=== PATIENT | female | born 1930 | race Caucasian/White ===

== ENCOUNTER 2016-04-15 11:01 | Emergency (ER) | payer MEDICARE, BC ==
--- OUTSIDE RECORDS SUMMARY | 2016-04-15 12:16 | XMS REPORT | Continuity of Care Document ---
:1930 Author Organization [facility] ([facility]) Address [address] [place] [address] Phone [phone] Care Team Providers Name Role Phone Brett Morales Primary Care Provider [phone] Source Comments This disclosure is being made pursuant to the Care Everywhere program, applicable federal and state laws, and may not contain all informaitonavailable regarding this patient.[facility] ([facility]) Active Allergies and Adverse Reactions Allergen Noted Date Severity Reactions Comments Atorvastatin 07/12/2012 OTHER Leg cramps Metoprolol Tartrate 07/12/2012 Dizziness,Rhinorrhea Current Medications Prescription Sig. Disp. Refills Start Date End Date Status multivitamin tablet take 1 tablet daily 12/21/2013 Active VIT C/VIT E Take 1 capsule by Active AC/LUT/COPPER/ZINC mouth daily. (PRESERVISION LUTEIN PO) lansoprazole 15 mg Take 15 mg by mouth Active capsule daily as needed. naproxen 250 mg tablet Take 250 mg by Active mouth daily as needed. artificial tears (TEARS Instill 1-2 Drops Active NATURALE II, GENTEAL onto both eyes as TEARS) ophthalmic needed. solution rOPINIRole 1 mg tablet Take 1 mg by mouth. Active 2-3 times per day with 1 dose being 1-3 hours before bedtime. furosemide 40 mg tablet TAKE ONE TABLET BY 0 04/01/2016 Active MOUTH DAILY FOR 7 DAYS simvastatin 40 mg tablet Take 40 mg by mouth 10 04/01/2016 Active at bedtime. 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 Age related macular degeneration 06/24/2010 Pseudophakia 06/24/2010 Nuclear sclerosis 06/24/2010 Resolved Problems Problem Noted Date Resolved Date Speech disturbance 12/24/2015 12/26/2015 Status post administration of tPA (rtPA) in a different 12/24/2015 12/26/2015 facility within the last 24 hours prior to admission to current facility Right sided weakness 12/24/2015 12/26/2015 Right arm weakness 12/24/2015 12/26/2015 Most Recent Encounters Date Type Specialty Providers Description 04/14/2016 Office Visit Neurology Kim Scott MD Dx: 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, 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) 01/18/2016 Nurse Triage Patient Services Jimbo Curtis, Chief Comp: Advice Only GANESH Quezada Social History Tobacco Use Types Packs/Day Years Used Date Former Smoker 0.75 Quit: 06/23/2012 Smokeless Tobacco: Never Used Alcohol Use Drinks/Week oz/Week Comments No Last Filed Vital Signs Vital Sign Reading Time Taken Blood Pressure 147/57 04/14/2016 10:28 AM 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 FRONT 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 OPERATOR Pulse 73 04/14/2016 10:28 AM COMMERCIAL FRONT LOAD OPERATOR Temperature 36.3 C (97.3 F) 12/26/2015 2:01 PM CDT Respiratory Rate 26 12/24/2015 7:02 PM CDT Height 1.588 m (5' 2.5") 04/14/2016 10:28 AM COMMERCIAL FRONT LOAD OPERATOR Weight 71.3 kg (157 lb 3 oz) 04/14/2016 10:28 AM COMMERCIAL FRONT LOAD OPERATOR Body Mass Index 28.27 04/14/2016 10:28 AM COMMERCIAL FRONT LOAD OPERATOR Oxygen Saturation 97% 04/14/2016 10:28 AM COMMERCIAL FRONT LOAD OPERATOR Plan of Care Date Type Specialty Providers Description 04/24/2016 Appointment Heart and Vascular Neena Al MD Chief Comp: Patient [address] [place] [address] Visit [phone] (Fax) Health Maintenance Due Date Last Done Comments Hepatitis B Vaccine (1 of 3 - Primary Series) 1930 Tdap Vaccine 1940 Td Vaccine 09/29/1947 Zoster Vaccine 1989 Pneumococcal Vaccine (1 of 2 - PCV13) 1994 Influenza Vaccine: Seasonal (#1) 09/24/2015 Lipid Disorder Screening 12/24/2020 12/25/2015 Results from Last 3 Months Not on file
[2016-04-15 12:32] LABS: Hematocrit 31.6 % (37.0-47.0); Mean Cell Volume 95.2 fl (78-100); Mean Corpuscular Hemoglobin 30.1 pg (27-31); Mean Corpuscular Hgb Conc 31.6 g/dl (32-36); Mean Platelet Volume 10.7 fl (6.0-9.5); Neutrophil # 6.6 K/mm3 (1.3-6.0); Neutrophil % 68.5 % (42-75.0); Platelet Count 225 K/mm3 (150-450); Red Blood Count 3.32 M/mm3 (4.2-5.4); Red Cell Distribution Width 13.7 % (11.5-14.0); White Blood Count 9.6 K/mm3 (4.0-10.5)
--- NOTE | 2016-04-15 12:43 | ERNOTE ---
Medical Problem HPI - Narrative Date of Service: 04/15/16 - General Chief Complaint: General Assessment Time Seen by Provider: 04/15/16 11:59 Source: patient, RN notes reviewed, old records Exam Limitations: no limitations - Immun/Allergies/Home Medications Immunizations: IMMUNIZATION HX Immunizations Up to Date Yes History of Influenza Vaccine Yes Hx Pneumococcal Vaccination Yes Allergies/Adverse Reactions: Allergies atorvastatin calcium [From Lipitor] Adverse Reaction (Mild, Verified 04/15/16 11 :13) LEG CRAMPS Home Medications: HOME MEDICATIONS Beta-Carotene(A) W-C , E/Min [Ocuvite] 1 tab PO DAILY 07/26/14 [Last Taken Unknown] Cyanocobalamin [Vitamin B-12] 1,000 mcg PO DAILY 04/14/15 [Last Taken Unknown] Multivitamins [Multivitamin David] 1 cap PO DAILY 04/14/15 [Last Taken Unknown] rOPINIRole HCL [Requip] 1 mg PO HS 09/25/15 [Last Taken Unknown] Aspirin 81 mg PO DAILY 04/15/16 [Last Taken Unknown] Rosuvastatin Calcium [Crestor] 10 mg PO DAILY 04/15/16 [Last Taken Unknown] Simvastatin [Zocor] 40 mg PO HS 04/15/16 [Last Taken Unknown] - History of Present History Narrative: 85 y/o female to the ED from the [place] by private vehicle for an episode of dizziness. 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 She reports that she was sitting in her room at the time. She had her blood pressure checked, and the systolic was over 200. She contacted her PCP's office and was directed to come here. She denies any other symptoms currently. She reports that she had been having some increased shortness of breath and swelling in her legs. She has seen her PCP for this and reports that some tests were done. She got up to use the restroom shortly before I came into the room. She reports briefly having some dizziness at that time. Orthostatic vital signs were done without any significant change with position. Date (Duration): 04/15/16 Time (Timing): 08:45 Timing: resolved prior to arrival Severity: mild Review of Systems - Review of Systems Constitutional: Absent: recent illness, fever, chills, malaise EYE: Absent: eye pain, blurred vision ENT: Absent: ear pain, nose congestion, sore throat Respiratory: Absent: cough, orthopnea Cardiology: Present: edema. Absent: chest pain, palpitations Gastrointestinal/Abdominal: Absent: nausea, vomiting, diarrhea, eating less, drinking less Musculoskeletal: Present: no symptoms reported Skin: Present: no symptoms reported Neurological: Absent: headache, weakness, numbness, tingling Endocrine: Present: no symptoms reported Hematologic/Lymphatic: Present: no symptoms reported Psych: Present: no symptoms reported - Patient's Past Medical History Patient History - Medical: Kidney stone Patient History - Cardiac/Respiratory: CVA/Stroke, Hypertension Patient History - Cancer: Colon Patient History - Surgical Procedures: Cataracts, Colonoscopy, Hysterectomy, Other Patient History - Other: None LMP (females 10-50): Menopausal - Family History Father Family History - Medical: , No pertinent hx Family History - Cardiac/Respiratory: No pertinent hx Mother Family History - Medical: , Diabetes Type 2 Family History - Cardiac/Respiratory: Hypertension - Social History Living Situations: assisted living Abuse History: No History of abuse Psych History: No pertinent hx Smoking Status: Former smoker Alcohol Use: none Drug Use: none - Immunizations Immunizations Up to Date: Yes Hx Pneumococcal Vaccination: Yes History of Influenza Vaccine: Yes Physical Exam - Physical Exam General Appearance: Present: wd/wn, alert, no apparent distress, other - Well dressed and groomed, appears younger than actual age Eye Exam: Normal inspection: bilateral, PERRL: bilateral, EOMI: bilateral Ears, Nose, Throat: Present: hearing decreased, cerumen impaction, normal pharynx, other - cerumen manually removed from both ears, TM's normal. Absent: nasal congestion, sinus pain/drainage Neck: Present: normal inspection, nontender, supple Respiratory: Present: no respiratory distress, normal breath sounds, no accessory muscle use, lungs clear Cardiovascular/Chest: Present: regular rate, rhythm, no murmur, normal peripheral pulses Extremity Exam: Present: non-tender, normal range of motion, pedal edema Neurological Exam: Present: alert, oriented, normal mood/affect, no motor/ sensory deficits Skin Exam: Present: normal color, warm/dry ED Progress - Results and Orders Patient's Lab Results:: I have reviewed the patient's lab results. - Vital Signs Patient's Vital Signs:: I have reviewed the patient's vital signs. Vital Signs: Vital Signs 04/15/16 04/15/16 11:06 12:12 Temperature 37.0 C Pulse Rate 75 72 Respiratory 16 Rate Blood Pressure 159/63 174/65 O2 Sat by Pulse 97 Oximetry - Progress/Reassessment Chief Complaint: General Assessment Progress:: Unchanged Plan - Plan Plan: CBC and CMP are stable since her last labwork. No clear cause determined for dizziness. To see Dr. Al next week as scheduled, or to contact her PCP if symptoms return. Departure - Departure Clinical Impression: Dizziness Disposition: Home Follow Up Needed Condition: Stable Instructions: Dizziness, [id number] Additional Instructions: Continue your current medications See Dr. Al as scheduled Referrals: Brett Morales DO [Primary Care Provider] -
[2016-04-15 12:45] LABS: Albumin * 3.4 gm/dl (3.4-5.0); Anion Gap 15.2 mmol/L (6.8-13.8); BUN/Creatinine Ratio 21.9 (9.0-21.6); Bilirubin, Total 0.4 mg/dL (0.0-1.1); Ca. Corrected For Albumin 8.8 mg/dL (8.4-10.2); Calcium * 8.6 mg/dL (7.9-10.9); Potassium 4.2 mmol/L (3.4-4.6); Total Protein 7.4 gm/dL (6.2-8.2)
[2016-04-15 13:16] VITALS: BP 160/44
== END 2016-04-15 13:10 | disposition home or self-care (01) ==
LOC: ER 11:01
DX: R42 Dizziness and giddiness (principal); Z87.442 Personal history of urinary calculi; Z85.038 Personal history of other malignant neoplasm of large intestine; Z87.891 Personal history of nicotine dependence

== ENCOUNTER 2016-06-17 08:13 | Observation (INO) | payer MEDICARE, BC ==
[2016-06-17 09:02] LABS: Mean Cell Volume 93.1 fl (78-100); Mean Corpuscular Hemoglobin 29.9 pg (27-31); Mean Corpuscular Hgb Conc 32.1 g/dl (32-36); Neutrophil # 9.2 K/mm3 (1.3-6.0); Neutrophil % 81.6 % (42-75.0); Platelet Count 212 K/mm3 (150-450); Red Blood Count 2.31 M/mm3 (4.2-5.4); Red Cell Distribution Width 14.8 % (11.5-14.0); White Blood Count 11.2 K/mm3 (4.0-10.5)
[2016-06-17 09:05] LABS: Hematocrit 21.5 % (37.0-47.0); Hemoglobin 6.9 gm/dL (12.5-16.0)
[2016-06-17 09:09] LABS: Urine Bilirubin Negative (NEGATIVE); Urine Blood Negative /ul (NEGATIVE); Urine Ketone Negative (NEGATIVE); Urine Nitrite Negative (NEGATIVE); Urine Protein 15 mg/dL (NEGATIVE); Urine Specific Gravity 1.025 SP.GR. (1.005-1.010); Urine Urobilinogen Normal (NORMAL); Urine pH 5.5 pH (5.0-7.0)
[2016-06-17 09:13] LABS: Prothrombin Time (Patient) 11.1 Seconds (9.4-11.4)
[2016-06-17 09:14] LABS: INR 1.07 INR (0.90-1.10)
[2016-06-17 09:17] LABS: Albumin * 2.9 gm/dl (3.4-5.0); Anion Gap 13.7 mmol/L (6.8-13.8); BUN/Creatinine Ratio 34.1 (9.0-21.6); Bilirubin, Total 0.4 mg/dL (0.0-1.1); Ca. Corrected For Albumin 9.3 mg/dL (8.4-10.2); Calcium * 8.7 mg/dL (7.9-10.9); Carbon Dioxide 24.7 mmol/L (24-32.6); Potassium 4.4 mmol/L (3.4-4.6); Total Protein 6.3 gm/dL (6.2-8.2)
[2016-06-17 09:18] LABS: Urine Appearance Slightly Cloudy; Urine Bacteria 4+; Urine Color Yellow; Urine WBC 25-50 /hpf (0-5)
--- OUTSIDE RECORDS SUMMARY | 2016-06-17 09:23 | XMS REPORT | Continuity of Care Document ---
:1930 Author Organization [facility] ([facility]) Address [address] [place] [address] Phone [phone] Care Team Providers Name Role Phone Brett Morales Primary Care Provider [phone] Source Comments This disclosure is being made pursuant to the Care Everywhere program, applicable federal and state laws, and may not contain all informaitonavailable regarding this patient.[facility] ([facility]) Active Allergies and Adverse Reactions Allergen Noted Date Severity Reactions Comments Atorvastatin 07/12/2012 OTHER Leg cramps Metoprolol Tartrate 07/12/2012 Dizziness,Rhinorrhea Current Medications Prescription Sig. Disp. Refills Start Date End Date Status VIT C/VIT E Take 1 capsule by Active AC/LUT/COPPER/ZINC mouth daily. (PRESERVISION LUTEIN PO) lansoprazole 15 mg Take 15 mg by mouth Active capsule daily as needed. artificial tears (TEARS Instill 1-2 Drops Active NATURALE II, GENTEAL onto both eyes as TEARS) ophthalmic needed. solution furosemide 40 mg tablet TAKE ONE TABLET BY 0 04/01/2016 Active MOUTH DAILY FOR 7 DAYS simvastatin 40 mg tablet Take 40 mg by mouth 10 04/01/2016 Active at bedtime. fluticasone 50 1 Ama as needed. 0 04/17/2016 Active mcg/Actuation nasal spray each nostril coenzyme Q10 100 mg Take 100 mg by Active capsule mouth daily. aspirin 81 mg EC tablet Take 81 mg by mouth Active daily. rOPINIRole 1 mg tablet Take 1 mg by mouth Active 4 times daily as needed. Active Problems Problem Noted Date Dyspnea on exertion 04/24/2016 Overview: CARDIOVASCULAR PROCEDURES ECHO Echo: LVH moderate. Moderate TR. PAS 50-60mmHg. Mild MR. 01/03/2014 Echo: Severe LVH. EF 62%. Mild TR PAS 52mmHg. Mild MR. Mild-mod MS. VASCULAR Carotid duplex: FELICIA 50%. LICA 50-59% 01/03/[address]:1. Several borderline prominent mediastinal lymph nodes are present. Several of these contain calcifications suggestive of granulomatous etiology.2. No intracardiac thrombus seen. Biatrial enlargement and extensive left ventricular hypertrophy seen. May consider correlation with cardiac function.3. Dense mitral annular calcification. Mild aortic valve calcification.4. Small hiatal hernia.5. Mosaic attenuation pattern in the lungs is nonspecific. 12/26/2015 ELECTROPHYSIOLOGY Event Recorder: NSR. Rare PAC. 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 Age related macular degeneration 06/24/2010 Pseudophakia 06/24/2010 Nuclear sclerosis 06/24/2010 Pulmonary HTN Resolved Problems Problem Noted Date Resolved Date Speech disturbance 12/24/2015 12/26/2015 Status post administration of tPA (rtPA) in a different 12/24/2015 12/26/2015 facility within the last 24 hours prior to admission to current facility Right sided weakness 12/24/2015 12/26/2015 Right arm weakness 12/24/2015 12/26/2015 Most Recent Encounters Date Type Specialty Providers Description 04/24/2016 Office Visit Heart and Vascular Neena Al MD Dx: Malaise and fatigue (Primary Dx) 04/14/2016 Office Visit Neurology Kim Scott MD Dx: History of Brittany Dan, 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) Immunizations Name Dates Previously Given Next Due Influenza 11/08/2013,11/22/2012,11/16/2011 Influenza, PF 11/29/2015,11/14/2014 Pneumococcal Conjugate, PCV13 (Prevnar 13) 11/14/2014 Pneumococcal Polysaccharide, PPSV23 11/16/2011 (Pneumovax 23) Tdap 04/14/2015 Social History Tobacco Use Types Packs/Day Years Used Date Former Smoker 0.75 Quit: 06/23/2012 Smokeless Tobacco: Never Used Alcohol Use Drinks/Week oz/Week Comments No Last Filed Vital Signs Vital Sign Reading Time Taken Blood Pressure 150/72 04/24/2016 12:19 PM 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 AND 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 Pulse 76 04/24/2016 12:19 PM LUG BREAKER AND WIRE PULLER Temperature 36.3 C (97.3 F) 12/26/2015 2:01 PM CDT Respiratory Rate 26 12/24/2015 7:02 PM CDT Height 1.588 m (5' 2.52") 04/24/2016 12:19 PM LUG BREAKER AND WIRE PULLER Weight 71.215 kg (157 lb) 04/24/2016 12:19 PM LUG BREAKER AND WIRE PULLER Body Mass Index 28.24 04/24/2016 12:19 PM LUG BREAKER AND WIRE PULLER Oxygen Saturation 97% 04/14/2016 10:28 AM LUG BREAKER AND WIRE PULLER Plan of Care Date Type Specialty Providers Description 06/24/2016 Appointment Heart and Vascular ServandoNeena MD Chief Comp: Patient [address] [place] [address] Visit [phone] (Fax) Health Maintenance Due Date Last Done Comments Hepatitis B Vaccine (1 of 3 1930 - Primary Series) Zoster Vaccine 1989 Lipid Disorder Screening 12/24/2020 12/25/2015 Td Vaccine 04/14/2025 04/14/2015 Pneumococcal Vaccine Completed 11/14/2014, 11/16/2011 Tdap Vaccine Completed 04/14/2015 Influenza Vaccine: Seasonal Completed 11/29/2015, Additional history exists 11/14/2014, 11/08/2013 Results from Last 3 Months Not on file
--- OUTSIDE RECORDS SUMMARY | 2016-06-17 09:26 | XMS REPORT | Continuity of Care Document ---
:1930 Author Organization [facility] ([facility]) Address [address] [place] [address] Phone [phone] Care Team Providers Name Role Phone Brett Morales Primary Care Provider [phone] Source Comments This disclosure is being made pursuant to the Care Everywhere program, applicable federal and state laws, and may not contain all informaitonavailable regarding this patient.[facility] ([facility]) Active Allergies and Adverse Reactions Allergen Noted [...] 04/01/2016 Active at bedtime. fluticasone 50 1 [place] as needed. 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) Immunizations Name Dates Previously [...] Taken Blood Pressure 150/72 04/24/2016 12:19 PM TELEVISION REPAIR TEACHER Pulse 76 04/24/2016 12:19 PM TELEVISION REPAIR TEACHER Temperature 36.3 C (97.3 F) 12/26/2015 2:01 PM CDT Respiratory Rate 26 12/24/2015 7:02 PM CDT Height 1.588 m (5' 2.52") 04/24/2016 12:19 PM TELEVISION REPAIR TEACHER Weight 71.215 kg (157 lb) 04/24/2016 12:19 PM TELEVISION REPAIR TEACHER Body Mass Index 28.24 04/24/2016 12:19 PM TELEVISION REPAIR TEACHER Oxygen Saturation 97% 04/14/2016 10:28 AM TELEVISION REPAIR TEACHER Plan of Care Date Type Specialty Providers Description 06/24/2016 Appointment Heart and Vascular ServandoNeena MD Chief Comp: Patient [address] [place] [address] Visit [phone] (Fax) Health Maintenance Due Date Last Done [...]
--- NOTE | 2016-06-17 09:27 | ERNOTE ---
Medical Problem HPI - Narrative Date of Service: 06/17/16 - General Chief Complaint: General Assessment Time Seen by Provider: 06/17/16 09:09 Source: patient, family Exam Limitations: no limitations - Immun/Allergies/Home Medications Immunizations: IMMUNIZATION HX Immunizations Up to Date Yes History of Influenza Vaccine Yes Hx Pneumococcal Vaccination Yes Allergies/Adverse Reactions: Allergies atorvastatin calcium [From Lipitor] Adverse Reaction (Mild, Verified 06/17/16 08 :25) LEG CRAMPS Home Medications: HOME MEDICATIONS Multivitamins [Multivitamin David] 1 cap PO DAILY 04/14/15 [Last Taken Unknown] rOPINIRole HCL [Requip] 1 mg PO HS 09/25/15 [Last Taken Unknown] Aspirin 81 mg PO DAILY 04/15/16 [Last Taken Unknown] Simvastatin [Zocor] 40 mg PO HS 04/15/16 [Last Taken Unknown] - History of Present History Narrative: Patient presents to the ED with increasing generalized weakness. She relates she saw Dr Morales yesterday and had labs. She has been having at least a week of dark stools. She was seen yesterday in PCP office. SHe denies acute focal weakness, only generalized weakness. No fevers. Occasional upper abdominal pain. No vomiting. No CP or SOB. Nothing seems to make this better or worse. Timing: getting worse Severity: moderate Modifying Factors - (Improves): Present: other - nothing Modifying Factors - (Worsens): Present: other - nothing Review of Systems - Review of Systems Constitutional: Absent: fever Respiratory: Absent: shortness of breath Cardiology: Absent: chest pain Gastrointestinal/Abdominal: Present: See HPI Genitourinary: Absent: dysuria All Other Systems: All systems neg except as marked - Patient's Past Medical History Patient History - Medical: Kidney stone Patient History - Cardiac/Respiratory: CVA/Stroke, Hypertension Patient History - Cancer: Colon Patient History - Surgical Procedures: Cataracts, Colonoscopy, Hysterectomy, Other Patient History - Other: None LMP (females 10-50): Menopausal - Family History Father Family History - Medical: , No pertinent hx Family History - Cardiac/Respiratory: No pertinent hx Mother Family History - Medical: , Diabetes Type 2 Family History - Cardiac/Respiratory: Hypertension - Social History Living Situations: home Abuse History: No History of abuse Psych History: No pertinent hx Smoking Status: Never smoker Alcohol Use: none Drug Use: none - Immunizations Immunizations Up to Date: Yes Hx Pneumococcal Vaccination: Yes History of Influenza Vaccine: Yes Physical Exam - Physical Exam General Appearance: Present: alert, no apparent distress Eye Exam: Normal inspection: bilateral Ears, Nose, Throat: Present: normal ENT inspection Neck: Present: normal inspection Respiratory: Present: no respiratory distress, normal breath sounds, no accessory muscle use, lungs clear Cardiovascular/Chest: Present: regular rate, rhythm Gastrointestinal/Abdominal: Present: normal bowel sounds, nondistended, soft, other - Minimal epigastric tenderness Back Exam: Absent: CVA tenderness (R), CVA tenderness (L) Extremity Exam: Present: other - no calf tendenress Neurological Exam: Present: alert, normal mood/affect, other - no acute new, unilateral focal motor deficits. Skin Exam: Absent: skin rash ED Progress - Date and Time Seen: Date and Time: 06/17/16 09:25 - Results and Orders Patient's Lab Results:: I have reviewed the patient's lab results. - Vital Signs Patient's Vital Signs:: I have reviewed the patient's vital signs. Vital Signs: Vital Signs 06/17/16 06/17/16 08:17 08:52 Temperature 36 C L Pulse Rate 82 78 Respiratory 16 11 L Rate Blood Pressure 131/41 129/48 - X-Ray X-Ray #1 X-Ray: abdomen Interpretation: Reviewed by me - Progress/Reassessment Chief Complaint: General Assessment Progress Note-Subjective: 06/17/16 09:[address] Morales, patient will be admitted. Patient crossmatched, vitals stable. UA still pending. She will be transferred to inpatient bed with some labs still pending. Discussed with family. Departure - Departure Clinical Impression: Anemia, Generalized weakness Disposition: [facility] Condition: Stable Referrals: Brett Morales DO [Primary Care Provider] -
[2016-06-17] MEDS ORDERED: PANTOPRAZOLE SODIUM 80 MG in NORMAL SALINE 100 ML IV ONE (11:51)
[2016-06-17] MEDS ORDERED: FUROSEMIDE 10 MG/ML VIAL IV ONE (11:54)
[2016-06-17] MEDS ORDERED: PANTOPRAZOLE SODIUM 40 MG in NORMAL SALINE 100 ML IV SCH (12:00)
--- NOTE | 2016-06-17 15:42 | HP ---
Chief Complaint - Chief Complaint Date of Service: 06/17/16 Time of Service: 15:31 Chief Complaint: Fatigue, black stools History of Present Illness: Ramona is an 85 yo female that reports black stools for the past weak and worsening fatigue. She had a hgb yesterday that was 7.9. Symptoms worsened today and she came to the ER. Hgb dropped to 6.9 and she had hemoccult positive stools. She has a history of colon cancer. CEA being monitored and stable. Last colonoscopy was in the past two years and clear of reoccurrence. She has been having hip pain and was started on naproxen in the last few weeks. She denies abdominal pain, nausea, or vomiting. Her only symptoms are increasing fatigue and melanotic stools. - Patient's Past Medical History Patient History - Medical: Anemia, Kidney stone Patient History - Cardiac/Respiratory: CHF, CVA/Stroke, Hypertension Patient History - Cancer: Colon Patient History - Surgical Procedures: Cataracts, Colonoscopy, Hysterectomy, Other Patient History - Other: None LMP (females 10-50): Menopausal - Family History Father Family History - Medical: , No pertinent hx Family History - Cardiac/Respiratory: No pertinent hx Mother Family History - Medical: , Diabetes Type 2 Family History - Cardiac/Respiratory: Hypertension - Social History Living Situations: assisted living Abuse History: No History of abuse Psych History: No pertinent hx Smoking Status: Former smoker Have you smoked in the past 12 months: No Do you dip or chew tobacco: No Smoking Stop Date: 06/18/99 Patient requests Smoking Cessation Consult: No Initiate information on Smoking Cessation: No Alcohol Use: none Drug Use: none - Immunizations Immunizations Up to Date: Yes Hx Pneumococcal Vaccination: Yes History of Influenza Vaccine: Yes Review Of Systems (GEN) - Review of Systems Generalized/Overall Review: Present: Weakness, Fatigue. Absent: Chills, Fever EENTM: Present: No Symptoms Reported Respiratory: Present: No Symptoms Reported Cardiac: Present: No Symptoms Reported Abdominal: Present: Melena. Absent: Nausea, Vomiting, Abdominal Pain, Constipation, Diarrhea, Bright blood from rectum Genitourinary: Present: No Symptoms Reported Musculoskeletal: Present: No Symptoms Reported Neurological: Present: No Symptoms Reported Skin: Present: No Symptoms Reported Immunizations: IMMUNIZATION HX Immunizations Up to Date Yes History of Influenza Vaccine Yes Hx Pneumococcal Vaccination Yes Allergies/Adverse Reactions: Allergies Allergy/AdvReac Type Severity Reaction Status Date / Time atorvastatin calcium AdvReac Mild LEG CRAMPS Verified 06/17/16 08:25 [From Lipitor] Home Medications: HOME MEDICATIONS rOPINIRole HCL [Requip] 1 mg PO HS 09/25/15 [Last Taken Unknown] Aspirin 81 mg PO DAILY 04/15/16 [Last Taken Unknown] Simvastatin [Zocor] 40 mg PO HS 04/15/16 [Last Taken Unknown] Beta-Carotene(A) W-C , E/Min [Ocuvite] 1 tab PO BID 06/17/16 [Last Taken Unknown ] Furosemide [Lasix] 40 mg PO DAILY PRN 06/17/16 [Last Taken Unknown] Ubidecarenone/Vit E Acet [Co Q-10 100 mg Softgel] 1 each PO DAILY 06/17/16 [ Last Taken Unknown] Exam - Exam Vital Signs: Vital Signs - Last Taken Temp 36.7 C 06/17/16 10:26 Pulse 80 06/17/16 13:33 Resp 18 06/17/16 10:26 BP 128/95 06/17/16 13:33 Pulse Ox 98 06/17/16 10:26 Constitutional: Present: Alert, Oriented x3, Cooperative ENT Exam: Present: hearing grossly normal Eye Exam: bilateral eye: normal inspection Respiratory: Present: lungs clear, normal breath sounds Cardiovascular/Chest: Present: regular rate, rhythm, systolic murmur - 2+ Abdomen: Present: Normal bowel sounds, soft, nondistended, no rebound tenderness , no hepatospenomegaly, no masses, tender - epigastric Extremity: Present: normal inspection Skin Exam: Present: normal color, warm/dry, no cyanosis Appearance: Present: appropriate appearance, appropriate insight Eye contact: Present: cooperative, good eye contact, normal speech Diagnostic Studies: Laboratory Results WBC 11.2 K/mm3 (4.0-10.5) H 06/17/16 08:52 RBC 2.31 M/mm3 (4.2-5.4) L 06/17/16 08:52 Hgb 6.9 gm/dL (12.5-16.0) L* 06/17/16 08:52 Hct 21.5 % (37.0-47.0) L* 06/17/16 08:52 MCV 93.1 fl (78-100) 06/17/16 08:52 MCH 29.9 pg (27-31) 06/17/16 08:52 MCHC 32.1 g/dl (32-36) 06/17/16 08:52 RDW 14.8 % (11.5-14.0) H 06/17/16 08:52 Plt Count 212 K/mm3 (150-450) 06/17/16 08:52 MPV 11.0 fl (6.0-9.5) H 06/17/16 08:52 Immature Gran % (Auto) 0.50 % (0.001-0.429) H 06/17/16 08:52 Immature Gran # (Auto) 0.06 K/mm3 (0.000-0.0310) H 06/17/16 08:52 Neutrophils % 81.6 % (42-75.0) H 06/17/16 08:52 Lymphocytes % 8.2 % (20-51) L 06/17/16 08:52 Monocytes % 8.0 % (0.0-9) 06/17/16 08:52 Eosinophils % 1.5 % (0.0-3.0) 06/17/16 08:52 Basophils % 0.2 % (0.0-1.0) 06/17/16 08:52 Nucleated RBC % 0.0 k/mm3 (0-1) 06/17/16 08:52 Neutrophils # 9.2 K/mm3 (1.3-6.0) H 06/17/16 08:52 Lymphocytes # 0.9 k/mm3 (1.5-3.5) L 06/17/16 08:52 Monocytes # 0.9 k/mm3 (0.0-1.0) 06/17/16 08:52 Eosinophils # 0.2 k/mm3 (0.0-0.7) 06/17/16 08:52 Absolute Basophils 0.0 k/mm3 (0.0-0.1) 06/17/16 08:52 PT 11.1 Seconds (9.4-11.4) 06/17/16 08:52 INR (Anticoag Therapy) 1.07 INR (0.90-1.10) 06/17/16 08:52 Sodium 140 mmol/L (132-142) 06/17/16 08:52 Plasma Sodium 141 mmol/L (130-142) 06/17/16 08:52 Potassium 4.4 mmol/L (3.4-4.6) 06/17/16 08:52 Chloride 106 mmol/L (97-106) 06/17/16 08:52 Carbon Dioxide 24.7 mmol/L (24-32.6) 06/17/16 08:52 Anion Gap 13.7 mmol/L (6.8-13.8) 06/17/16 08:52 BUN 43 mg/dL (3-23) H 06/17/16 08:52 Creatinine 1.26 mg/dL (0.4-1.4) 06/17/16 08:52 Est GFR (Non-Af Amer) 43 mL/min (60-130) L 06/17/16 08:52 BUN/Creatinine Ratio 34.1 (9.0-21.6) H 06/17/16 08:52 Random Glucose 136 mg/dL (70-110) H 06/17/16 08:52 Calcium 8.7 mg/dL (7.9-10.9) 06/17/16 08:52 Calcium Adj for Albumin 9.3 mg/dL (8.4-10.2) 06/17/16 08:52 Total Bilirubin 0.4 mg/dL (0.0-1.1) 06/17/16 08:52 AST 20 U/L (0-48) 06/17/16 08:52 ALT 18 U/L (19-67) L 06/17/16 08:52 Alkaline Phosphatase 88 U/L (50-170) 06/17/16 08:52 Total Protein 6.3 gm/dL (6.2-8.2) 06/17/16 08:52 Albumin 2.9 gm/dl (3.4-5.0) L 06/17/16 08:52 Lipase 170 U/L (73-393) 06/17/16 08:52 Urine Color Yellow 06/17/16 09:03 Urine Appearance Slightly cloudy 06/17/16 09:03 Urine pH 5.5 pH (5.0-7.0) 06/17/16 09:03 Ur Specific [place] 1.025 SP.GR. (1.005-1.010) 06/17/16 09:03 Urine Protein 15 mg/dL (NEGATIVE) H 06/17/16 09:03 Urine Glucose (UA) Negative mg/dL (NEGATIVE) 06/17/16 09:03 Urine Ketones Negative mg/dL (NEGATIVE) 06/17/16 09:03 Urine Blood Negative /ul (NEGATIVE) 06/17/16 09:03 Urine Nitrate Negative (NEGATIVE) 06/17/16 09:03 Urine Bilirubin Negative mg/dl (NEGATIVE) 06/17/16 09:03 Prot Sulfosalicylic Acd 1+ mg/dL (0) 06/17/16 09:03 Urine Urobilinogen Normal EU/dl (NORMAL) 06/17/16 09:03 Ur Leukocyte Esterase 500 /ul (NEGATIVE) H 06/17/16 09:03 Urine RBC 5-10 /hpf (0-5) H 06/17/16 09:03 Urine WBC 25-50 /hpf (0-5) H 06/17/16 09:03 Ur Epithelial Cells 10-25 /hpf (0-5) H 06/17/16 09:03 Urine Bacteria 4+ (NONE) H 06/17/16 09:03 Urine Culture Comments Culture to follow 06/17/16 09:03 Stool Occult Blood Positive H 06/17/16 09:14 Blood Type O Positive 06/17/16 08:52 Antibody Screen Negative 06/17/16 08:52 Crossmatch See Detail 06/17/16 08:52 Assessment/Plan - Assessment/Plan (1) Upper GI bleed Assessment: Ramona is an 85 yo female with fatigue, melena, and hgb of 6.9. She likely has bleeding gastritis vs ulcer secondary to NSAID use in the past three weeks. She will be admitted to observation, will transfuse 2 units of pRBCs with lasix in between. She will be NPO. Will start protonix IV bolus of 80mg and then 8mg/hr drip. Will monitor hgb following transfusion. General Surgery consulted for EGD. If there is no evidence of active bleeding on EGD tomorrow may consider discharging to home if bleeding appears to have resolved and she is doing well. At this time will admit to observation with 1 midnight expected. However if she continues to bleed and needs further transfusions will change to acute status. Problem: Acute
--- NOTE | 2016-06-17 17:37 | CONS ---
[facility] - General Date of Service: 06/17/16 Source: patient, family, RN/, RN notes reviewed, old records - History of Present Illness Initial Comments: She started noticing black stools about 10 days ago. She became progressively weaker and called to have lab checked---found to be profoundly anemic. 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 Surveillance colonoscopy was negative in 2014. There was desmoplastic reaction adjacent to the duodenum at her original operation, but no evidence of tumor there at her second procedure. She has very severe sigmoid diverticulosis. She was started on Naprosyn 500mg po BID on 05/27/16 for lower back pain and has been taking it regularly. She noted some epigastric tenderness when her abdomen was palpated in the ER. Allergies/Adverse Reactions: Allergies atorvastatin calcium [From Lipitor] Adverse Reaction (Mild, Verified 06/17/16 08 :25) LEG CRAMPS Home Medications: Home Medications Medication Instructions Recorded Last Taken rOPINIRole HCL [Requip] 1 mg PO HS 09/25/15 Unknown Aspirin 81 mg PO DAILY 04/15/16 Unknown Simvastatin [Zocor] 40 mg PO HS 04/15/16 Unknown Beta-Carotene(A) W-C , E/Min 1 tab PO BID 06/17/16 Unknown [Ocuvite] Furosemide [Lasix] 40 mg PO DAILY PRN 06/17/16 Unknown Ubidecarenone/Vit E Acet [Co Q-10 1 each PO DAILY 06/17/16 Unknown 100 mg Softgel] - Patient's Past Medical History Patient History - Medical: Anemia, Kidney stone Patient History - Cardiac/Respiratory: CHF, CVA/Stroke, Hypertension Patient History - Cancer: Colon Patient History - Surgical Procedures: Cataracts, Colonoscopy, Hysterectomy, Other - Right colon resection 2011 for ascending colon cancer with re-resection for recurrece of the mucinous adenocarcinoma 2012. Negative colonoscopy 2014 Patient History - Other: None LMP (females 10-50): Menopausal - Family History Father Family History - Medical: , No pertinent hx Family History - Cardiac/Respiratory: No pertinent hx Mother Family History - Medical: , Diabetes Type 2 Family History - Cardiac/Respiratory: Hypertension - Social History Living Situations: assisted living Abuse History: No History of abuse Psych History: No pertinent hx Smoking Status: Former smoker Have you smoked in the past 12 months: No Do you dip or chew tobacco: No Smoking Stop Date: 06/18/99 Patient requests Smoking Cessation Consult: No Initiate information on Smoking Cessation: No Alcohol Use: none Drug Use: none - Immunizations Immunizations Up to Date: Yes Hx Pneumococcal Vaccination: Yes History of Influenza Vaccine: Yes Procedures ANESTH INJECT-SPIN CANAL (07/12/08) APPLICATION OF SPLINT (01/24/06) ARTERIAL BLD GAS MEASURE (02/11/13) BREAST DX PROCEDURE NEC (12/21/06) CLOSED ENDOSCOPIC BIOPSY OF LARGE INTESTINE (01/07/13) COLONOSCOPY (07/31/14) CONTINUOUS INVASIVE MECHANICAL VENTILATION <96 CONSEC HRS (09/05/11) DX ULTRASOUND-HEAD/NECK (05/31/01) ENDOSC POLYPECTOMY OF LG INTEST (06/23/12) ENDOSCOPIC BIOPSY OF RECTUM (01/07/13) ESOPHAGOGASTRODUODENOSCOPY [EGD] W/CLOSED BIOPSY (08/25/11) INJECT STEROID (07/12/08) INSERT ENDOTRACHEAL TUBE (09/05/11) INTESTINAL ANASTOM NOS (02/11/13) INTRODUCE OTH THROMBOLYTIC IN PERIPH VEIN, PERC (12/24/15) OP RED-INT FIX RAD/ULNA (01/29/06) OPEN AND OTHER RESECTION OF TRANSVERSE COLON (02/11/13) OPEN AND OTHER RIGHT HEMICOLECTOMY (09/05/11) PACKED CELL TRANSFUSION (06/24/12) PERCUTAN NEEDLE BIOPSY OF BREAST (12/21/06) PERCUTAN NEEDLE BX OF THYROID GLAND (05/31/01) REPAIR LEFT HAND SKIN, EXTERNAL APPROACH (04/14/15) REPLACEMENT OF LEFT LENS WITH SYNTH SUB, PERC APPROACH (10/01/15) SPINAL CANAL INJECT NEC (07/12/08) Medications - Medications Current Medications: Current Medications Pantoprazole Sodium 40 mg/ (Sodium Chloride) 100 mls @ 400 mls/hr IV Q12H BENY Stop: 07/17/16 12:01 Last Admin: 06/17/16 14:05 Dose: 20 mls/hr Review of Systems - Review of Systems Generalized/Overall Review: Present: Weakness. Absent: Chills, Fever EENTM: Present: No Symptoms Reported, Other - was a little dizzy on standing Respiratory: Absent: Cough, Shortness of Breath Cardiac: Absent: Chest Pain Abdominal: Present: Other - black stools Musculoskeletal: Present: Back Pain Neurological: Present: No Symptoms Reported Skin: Present: No Symptoms Reported Physical Examination - Exam Vital Signs: Vital Signs - Last Taken Temp 36.4 C L 06/17/16 16:16 Pulse 78 06/17/16 16:16 Resp 18 06/17/16 16:16 BP 155/42 06/17/16 16:16 Pulse Ox 100 06/17/16 16:16 O2 Oxygen Delivery Method Room Air Constitutional: Present: Alert, Oriented x3, Cooperative ENT Exam: Present: normal ENT inspection, other - pale Eye Exam: bilateral eye: normal inspection Neck: Present: normal inspection Respiratory: Present: no respiratory distress Cardiovascular/Chest: Present: regular rate, rhythm Abdomen: Present: soft - mild tenderness deep in epigastrium, no guarding/ rebound/mass Neurologic: Present: 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 There is also the possibility of cancer recurrence in the duodenum or stomach but this is unlikely. Pamphlets on EGD and GERD explaining the rationale/risks and benefits were reviewed with her and her family and given to them It would be useful to perform an EGD tomorrow after transfusion to identify the source of the bleeding--whether gastritis or ulcer/tumor. While the medical treatment will be the same, if she would then rebleed with an ulcer, surgery may be needed. After an interactive discussion, their questions were answered to their apparent satisfaction and she has given informed consent for EGD. Problem: Acute
[2016-06-17] MEDS ORDERED: rOPINIRole HCL 1 MG TABLET PO ONE (18:08)
[2016-06-17] MEDS ORDERED: rOPINIRole HCL 1 MG TABLET PO SCH (21:00)
[2016-06-17] MEDS: PANTOPRAZOLE SODIUM 40 MG in NORMAL SALINE 100 ML IV SCH (21:47)
[2016-06-18] MEDS: PANTOPRAZOLE SODIUM 40 MG in NORMAL SALINE 100 ML IV SCH ×3 (02:48→14:18)
[2016-06-18 04:27] LABS: Hematocrit 30.1 % (37.0-47.0); Hemoglobin 9.9 gm/dL (12.5-16.0)
[2016-06-18] MEDS ORDERED: DEXTROSE 5%-NORMAL SALINE 1,000 ML IV PRN (06:11)
[2016-06-18] MEDS ORDERED: RINGERS SOLUTION,LACTATED 1,000 ML IV ONE (09:35)
--- NOTE | 2016-06-18 10:13 | OR ---
Operative Report - Dictated Report Narrative: Operative Report Date of operation 06/18/2016 Preoperative diagnosis: Upper GI bleeding, anemia Postoperative diagnosis: Hiatal hernia. Gastropathy with healing punctate antral ulcers. Severe duodenitis (CLOtest pending) Operation: EGD with biopsy Surgeon: Dr Fatima Anesthesia: JESICA TOSCANO CRNA Indications for procedure: The patient is an 85-year-old female admitted with profound anemia, black stools, and elevated BUN suggesting upper GI bleeding. She was recently started on Naprosyn Findings: Normal esophagus. Hiatal hernia. Gastropathy with scattered punctate 2 mm distal antral healing ulcers. Severe duodenitis. No active bleeding seen Narrative of procedure: The patient was identified preoperatively, and prior to the administration of anesthetic a multidisciplinary timeout was observed With the patient in the recumbent position, a bite-block was placed, intravenous sedation was administered, and the patient's eyes covered with a towel. The flexible fiberoptic gastroscope was advanced into the posterior pharynx which appeared normal. The supraglottic larynx appeared normal. The cords appeared normal, moved well, and opposed in the midline. The scope was advanced under direct vision into the proximal esophagus which appeared normal. The esophagus appeared freely distensible with normal mucosa. The esophageal mucosa appeared normal down to the gastroesophageal junction which was sharp and noninflamed. The GE junction appeared normally distensible. There was a small hiatal hernia. The scope was advanced into the stomach which was insufflated with air. There was hinton gastric erythema with multiple punctate healing prepyloric ulcers but no active bleeding. The pylorus appeared patent. The scope was advanced into the duodenal bulb which appeared inflamed with edema and friability but no active ulcer was present. The inflammation appeared benign in nature and not compatible with tumor. The scope was advanced further to the horizontal portion of the duodenum which appeared normal, specifically the villous architecture appeared well preserved and clear bile was present. The scope was slowly withdrawn through the duodenal bulb with confirmation that no active ulcer was present. The scope was withdrawn into the stomach and a compliance representative biopsy of gastric mucosa obtained for CLOtest. The biopsy site was seen to be hemostatic. The insufflated air was removed, the scope withdrawn from the patient, and the procedure terminated. The patient tolerated the anesthetic and procedure well without complication and was transferred back to the floor awake and in stable condition. Reviewed and electronically signed
[2016-06-18] MEDS ORDERED: FERROUS SULFATE 325 MG TABLET ONE (11:11)
[2016-06-18] MEDS ORDERED: rOPINIRole HCL 1 MG TABLET PO ONE (11:15)
--- NOTE | 2016-06-18 14:37 | DS ---
(1) Gastritis and gastroduodenitis with hemorrhage Diagnosis(s): Ramona is an 85 yo female that was admitted with GI bleeding and anemia. She was made NPO, transfused 2 units of pRBCS. She was placed on protonix drop for suspected Upper GI Bleed. Serial hemoglobin was stable following transfusion. EGD was performed by surgery. There was no active bleeding seen. Evidence of chemical gastritis was seen. Per history she had been taking naproxen for hip pain. This was discontinued. She was started on iron and will continue oral protonix. She was doing well, diet was advanced, and discharged to home. Problem: Acute Procedures Performed: see notes below List Procedures: 06/18/16 - EGD Discharge Disposition: [facility] Disposition: [facility] Condition: Stable Discharge Activity: Activity as tolerated Discharge Diet: Low salt Referrals: Brett Morales DO [Primary Care Provider] - One Week Problem Oriented Discharge Instructions to Patient/Family: Gastritis, Adult, [id number] Additional Patient Instructions (free text): Follow-up with ThuJune 25 @ 11 am Fax discharge orders to [facility]. Hold aspirin for the next month while on pantoprazole to heal up the stomach. After a month may stop pantoprazole and restart aspirin 81mg daily. Prescriptions (Any new or edited meds): Ferrous Sulfate 325 mg PO BIDWM #60 tablet Pantoprazole Sodium 40 mg PO DAILY #30 tablet. Complete Home Medications List: Complete Home Medication List: rOPINIRole HCL [Requip] 1 mg PO HS 09/25/15 Aspirin 81 mg PO DAILY 04/15/16 Simvastatin [Zocor] 40 mg PO HS 04/15/16 Beta-Carotene(A) W-C , E/Min [Ocuvite] 1 tab PO BID 06/17/16 Furosemide [Lasix] 40 mg PO DAILY PRN 06/17/16 Ubidecarenone/Vit E Acet [Co Q-10 100 mg Softgel] 1 each PO DAILY 06/17/16 Ferrous Sulfate 325 mg PO BIDWM #60 tablet 06/18/16 Pantoprazole Sodium 40 mg PO DAILY #30 tablet. 06/18/16
[2016-06-18 14:48] VITALS: BP 149/33
[2016-06-18 14:50] LABS: Hematocrit 30.4 % (37.0-47.0); Hemoglobin 9.9 gm/dL (12.5-16.0); Mean Cell Volume 87.6 fl (78-100); Mean Corpuscular Hemoglobin 28.5 pg (27-31); Mean Corpuscular Hgb Conc 32.6 g/dl (32-36); Mean Platelet Volume 10.6 fl (6.0-9.5); Platelet Count 201 K/mm3 (150-450); Red Blood Count 3.47 M/mm3 (4.2-5.4); Red Cell Distribution Width 16.9 % (11.5-14.0); White Blood Count 9.7 K/mm3 (4.0-10.5)
[2016-06-18] MEDS ORDERED: FERROUS SULFATE 325 MG TABLET PO SCH (17:00)
== END 2016-06-18 16:20 | disposition home or self-care (01) ==
LOC: ER 08:13 → MS 09:22
PROVIDERS: ADMIT Family Medicine; ATTEND Family Medicine
PROC: 0DB98ZZ Excision of Duodenum, Via Natural or Artificial Opening Endoscopic (ICD-10-PCS; principal; 2016-06-17)
PROC: 30233N1 Transfusion of Nonautologous Red Blood Cells into Peripheral Vein, Percutaneous Approach (ICD-10-PCS; 2016-06-17)
DX: K29.01 Acute gastritis with bleeding (principal); K29.91 Gastroduodenitis, unspecified, with bleeding; Z87.891 Personal history of nicotine dependence; D62 Acute posthemorrhagic anemia; K44.9 Diaphragmatic hernia without obstruction or gangrene; K25.9 Gastric ulcer, unspecified as acute or chronic, without hemorrhage or perforation; K31.9 Disease of stomach and duodenum, unspecified; I10 Essential (primary) hypertension; I50.9 Heart failure, unspecified; Z86.73 Personal history of transient ischemic attack (TIA), and cerebral infarction without residual deficits
CPT/HCPCS: 36415; 43239; 74020; 80053; 81001; 82272; 83690; 85014; 85018; 85025; 85027; 85610; 86850; 86900; 87081; 87086; 96365; 96375; 99284; G0378; P9016

== ENCOUNTER 2016-11-17 09:26 | Inpatient (IN) | payer MEDICARE, BC ==
[2016-11-17 09:52] LABS: Hematocrit 33.4 % (37.0-47.0); Hemoglobin 10.9 gm/dL (12.5-16.0); Mean Cell Volume 94.9 fl (78-100); Mean Corpuscular Hgb Conc 32.6 g/dl (32-36); Mean Platelet Volume 11.3 fl (6.0-9.5); Neutrophil # 10.9 K/mm3 (1.3-6.0); Neutrophil % 85.2 % (42-75.0); Platelet Count 182 K/mm3 (150-450); Red Blood Count 3.52 M/mm3 (4.2-5.4); White Blood Count 12.8 K/mm3 (4.0-10.5)
[2016-11-17 09:58] LABS: INR 1.02 INR (0.90-1.10); Prothrombin Time (Patient) 10.6 Seconds (9.4-11.4)
[2016-11-17 10:03] LABS: Albumin * 3.3 gm/dl (3.4-5.0); Anion Gap 14.2 mmol/L (6.8-13.8); BUN/Creatinine Ratio 18.6 (9.0-21.6); Bilirubin, Total 0.5 mg/dL (0.0-1.1); Calcium * 8.8 mg/dL (7.9-10.9); Carbon Dioxide 26.9 mmol/L (24-32.6); Potassium 4.1 mmol/L (3.4-4.6); Total Protein 7.2 gm/dL (6.2-8.2)
[2016-11-17] MEDS ORDERED: MORPHINE SULFATE 2 MG/ML DISP.SYRIN IV ONE (10:31)
[2016-11-17] MEDS ORDERED: MORPHINE SULFATE 2 MG/ML DISP.SYRIN ONE (10:44)
[2016-11-17 10:48] LABS: Urine Bilirubin Negative (NEGATIVE); Urine Blood Negative /ul (NEGATIVE); Urine Ketone Negative (NEGATIVE); Urine Nitrite Negative (NEGATIVE); Urine Protein 15 mg/dL (NEGATIVE); Urine Specific Gravity >=1.030 SP.GR. (1.005-1.010); Urine Urobilinogen Normal (NORMAL); Urine pH 5.5 pH (5.0-7.0)
[2016-11-17 10:55] LABS: Urine Appearance Clear; Urine Color Yellow
[2016-11-17 10:56] LABS: Urine Bacteria TRACE; Urine RBC 0-5 /hpf (0-5); Urine WBC None Seen /hpf (0-5)
--- NOTE | 2016-11-17 11:30 | ERNOTE ---
Neuro HPI ER Record Date of Service: 11/17/16 Presenting Symptoms: weakness, other - hip pain Time Seen by Provider: 11/17/16 09:28 Source: patient Exam Limitations: no limitations Immunizations: IMMUNIZATION HX Immunizations Up to Date Yes History of Influenza Vaccine Yes Hx Pneumococcal Vaccination Yes Allergies/Adverse Reactions: Allergies Allergy/AdvReac Type Severity Reaction Status Date / Time atorvastatin calcium AdvReac Mild LEG CRAMPS Verified 11/17/16 09:39 [From Lipitor] Home Medications: HOME MEDICATIONS rOPINIRole HCL [Requip] 1 mg PO HS 09/25/15 [Last Taken Unknown] Aspirin 81 mg PO DAILY 04/15/16 [Last Taken Unknown] Simvastatin [Zocor] 40 mg PO HS 04/15/16 [Last Taken Unknown] Beta-Carotene(A) W-C , E/Min [Ocuvite] 1 tab PO BID 06/17/16 [Last Taken Unknown ] Furosemide [Lasix] 40 mg PO DAILY PRN 06/17/16 [Last Taken Unknown] Ferrous Sulfate 325 mg PO BIDWM #60 tablet 06/18/16 [Last Taken Unknown] Pantoprazole Sodium 40 mg PO DAILY #30 tablet. 06/18/16 [Last Taken Unknown] - History of Present Illness Narrative: patient fell in bathroom today. this happened at 540am today. This was the onset of her Sx. Speech difficulty. Weakness and left hip pain. Denies head trauma. no CP or SOB. No fever or vomiting. She feels like her neuro Sx are better c/w earlier. No trouble breathing or swallowing. Movement makes her left hip pain worse. She was unable to ambulate after the fall. Onset: other - over 3 hours ago Severity: moderate Context: fall - Character of Deficits New weakness: Present: facial (lt) Additional Deficits: Present: impaired speech, cannot walk, cannot stand Associated Symptoms: Denies: fever/chills, chest pain, headache, confused Prior Treament: Denies: recently seen Review of Systems - Review of Systems Constitutional: Absent: fever ENT: Absent: sore throat Respiratory: Absent: shortness of breath Cardiology: Absent: chest pain Gastrointestinal/Abdominal: Absent: abdominal pain Genitourinary: Absent: dysuria All Other Systems: All systems neg except as marked - Patient's Past Medical History Patient History - Medical: Anemia, Kidney stone Patient History - Cardiac/Respiratory: CHF, CVA/Stroke, Hypertension Patient History - Cancer: Colon Patient History - Surgical Procedures: Cataracts, Colonoscopy, Hysterectomy, Other Patient History - Other: None LMP (females 10-50): post men - Family History Father Family History - Medical: , No pertinent hx Family History - Cardiac/Respiratory: No pertinent hx Mother Family History - Medical: , Diabetes Type 2 Family History - Cardiac/Respiratory: Hypertension - Social History Living Situations: assisted living Abuse History: No History of abuse Psych History: No pertinent hx Smoking Status: Never smoker Alcohol Use: none Drug Use: none - Immunizations Immunizations Up to Date: Yes Hx Pneumococcal Vaccination: Yes History of Influenza Vaccine: Yes Physical Exam - Physical Exam General Appearance: Present: alert, no apparent distress Head Exam: Present: normal inspection, no evidence of injury Eye Exam: Normal inspection: bilateral, PERRL: bilateral Ears, Nose, Throat: Present: normal ENT inspection Neck: Present: normal inspection, nontender, other - no posteriro C-spine tenderness Respiratory: Present: no respiratory distress, normal breath sounds, lungs clear Cardiovascular/Chest: Present: regular rate, rhythm, normal peripheral pulses Gastrointestinal/Abdominal: Present: normal bowel sounds, nontender, soft Back Exam: Present: no vertebral tenderness Extremity Exam: Present: other - left hip tendenress and pain with ROM. No evidence of open Fracture that I can appreciate. Neurological Exam: Present: alert, other - mild left facial droop. mild dysarthria. Minimal left pronator drift but finger to nose wnl. LLE not testable tdue to hip fracture. Skin Exam: Present: normal color, warm/dry ED Progress - Results and Orders Patient's Lab Results:: I have reviewed the patient's lab results. - Vital Signs Patient's Vital Signs:: I have reviewed the patient's vital signs. Vital Signs: Vital Signs 11/17/16 11/17/16 11/17/16 09:28 10:25 10:47 Pulse Rate 82 61 81 Respiratory 28 H 24 H 24 H Rate Blood Pressure 115/61 130/56 127/63 O2 Sat by Pulse 97 96 97 Oximetry - EKG EKG: NSR EKG read: Interp. by me EKG Comments: NSR rate 74. Non-specific changes, no clear evidence of STEMI. - X-Ray X-Ray #1 X-Ray: chest Interpretation: Interp. by me X-ray Comments: I reviewed radiology report X-Ray #2 X-Ray: hip Interpretation: Interp. by me X-ray Comments: I reviewed radiology report - CT/Ultrasound CT/Ultrasound Narrative: CT head, I reviewed radiology report - Progress/Reassessment Chief Complaint: CerebroVascular Accident Progress Note-Subjective: 11/17/16 11:28 D/W Dr Morales who accepts admission. D/W Dr Weeks who will consult for the hip fracture. D/W patient and family. Patient is not a tPA candidate as Sx over 3 hours old, Sx improved on re-check also hip fracture. 11/17/16 11:28 Departure Clinical Impression: Fall, Stroke-like symptom, Hip fracture, left - Departure Disposition: [facility] Condition: Stable
[2016-11-17] MEDS ORDERED: HEPARIN SODIUM,PORCINE 5,000 UNITS/ML VIAL SC SCH (12:15)
[2016-11-17] MEDS: DEXTROSE 5%-NORMAL SALINE 1,000 ML IV PRN ×2 (12:41→22:31)
[2016-11-17] MEDS ORDERED: ONDANSETRON HCL/PF 2 MG/ML VIAL IV PRN (12:58)
--- NOTE | 2016-11-17 13:12 | HP ---
Chief Complaint - Chief Complaint Date of Service: 11/17/16 Time of Service: 12:45 Chief Complaint: left sided weakness, fall, left leg pain History of Present Illness: Ramona is an 86 year old female patient of Dr. Morales with a PMH of prior acute ischemic stroke involving the left fry radiata and external capsule ( currently on ASA and statin therapy), bilateral carotid artery stenosis, RLS, HTN, HLD, adenocarcinoma s/p resection, and diastolic CHF who presented to the ER with left left pain s/p fall and left sided weakness. ER evaluation revealed CT showed a subacute lacunar infarct, left hip/pelvis xray showed comminuted, impacted, displaced intertrochanteric fracture of the proximal left femur. Last echo 04/07/16 showed severe LVH, ef 62%, Left atria moderately- severely dilated, diastolic dysfunction, mild-moderate MS, mild MR, mild TR, IVC dilated and Pulmonary HTN with RVSP of 57. Patient fell in her bathroom and landed on her left side this morning at 5:30 am but was not found and taken to the ER until 9:30 am and thus was not a candidate for TPA. Patient to be admitted for acute lacunar infarct and left hip fracture. - Patient's Past Medical History Patient History - Medical: Anemia, Kidney stone Patient History - Cardiac/Respiratory: CHF, CVA/Stroke, Hypertension Patient History - Cancer: Colon Patient History - Surgical Procedures: Cataracts, Colonoscopy, Hysterectomy, Other Patient History - Other: None LMP (females 10-50): post men - Family History Father Family History - Medical: , No pertinent hx Family History - Cardiac/Respiratory: No pertinent hx Mother Family History - Medical: , Diabetes Type 2 Family History - Cardiac/Respiratory: Hypertension - Social History Living Situations: assisted living Abuse History: No History of abuse Psych History: No pertinent hx Smoking Status: Never smoker Alcohol Use: none Drug Use: none - Immunizations Immunizations Up to Date: Yes Hx Pneumococcal Vaccination: Yes History of Influenza Vaccine: Yes Review Of Systems (GEN) - Review of Systems Generalized/Overall Review: Absent: Chills, Fever EENTM: Present: No Symptoms Reported Respiratory: Present: No Symptoms Reported Cardiac: Present: No Symptoms Reported Abdominal: Present: No Symptoms Reported Genitourinary: Present: No Symptoms Reported Musculoskeletal: Present: Joint Pain, Joint Swelling, Muscle Pain Neurological: Present: Numbness, Parasthesia, Weakness Skin: Present: No Symptoms Reported Endocrine: Present: No Symptoms Reported Misc: All systems neg except as marked Immunizations: IMMUNIZATION HX Immunizations Up to Date Yes History of Influenza Vaccine Yes Hx Pneumococcal Vaccination Yes Allergies/Adverse Reactions: Allergies Allergy/AdvReac Type Severity Reaction Status Date / Time naproxen [From Naprosyn] AdvReac Intermediate Other Verified 11/17/16 14:07 atorvastatin calcium AdvReac Mild LEG CRAMPS Verified 11/17/16 14:07 [From Lipitor] Home Medications: HOME MEDICATIONS rOPINIRole HCL [Requip] 1 mg PO HS 09/25/15 [Last Taken Unknown] Aspirin 81 mg PO DAILY 04/15/16 [Last Taken Unknown] Simvastatin [Zocor] 40 mg PO HS 04/15/16 [Last Taken Unknown] Beta-Carotene(A) W-C , E/Min [Ocuvite] 1 tab PO BID 06/17/16 [Last Taken Unknown ] Furosemide [Lasix] 40 mg PO DAILY PRN 06/17/16 [Last Taken Unknown] Ferrous Sulfate 325 mg PO BIDWM #60 tablet 06/18/16 [Last Taken Unknown] Pantoprazole Sodium 40 mg PO DAILY #30 tablet. 06/18/16 [Last Taken Unknown] Exam - Exam Vital Signs: Vital Signs - Last Taken Temp 36.6 C 11/17/16 12:16 Pulse 66 11/17/16 12:16 Resp 22 H 11/17/16 12:16 BP 146/56 11/17/16 12:16 Pulse Ox 97 11/17/16 12:16 Constitutional: Present: Somnolent, Elderly ENT Exam: Present: hard of hearing Neck: Present: supple Breasts: Present: Exam deferred Respiratory: Present: chest non-tender, decreased breath sounds Cardiovascular/Chest: Present: normal peripheral pulses, regular rate, rhythm, no chest tenderness Peripheral Pulses: carotid (R): 2+, carotid (L): 2+, dorsalis-pedis (R): 2+, dorsalis-pedis (L): 2+, radial (R): 2+, radial (L): 2+ Abdomen: Present: soft, nontender, nondistended /Rectal: Present: Exam deferred Extremity: Present: normal inspection - right, leg pain - left Skin Exam: Present: warm/dry, no cyanosis, pallor Neurologic: Present: facial droop - left side, motor weakness - left side Diagnostic Studies: Laboratory Results WBC 12.8 K/mm3 (4.0-10.5) H 11/17/16 09:40 RBC 3.52 M/mm3 (4.2-5.4) L 11/17/16 09:40 Hgb 10.9 gm/dL (12.5-16.0) L 11/17/16 09:40 Hct 33.4 % (37.0-47.0) L 11/17/16 09:40 MCV 94.9 fl (78-100) 11/17/16 09:40 MCH 31.0 pg (27-31) 11/17/16 09:40 MCHC 32.6 g/dl (32-36) 11/17/16 09:40 RDW 14.0 % (11.5-14.0) 11/17/16 09:40 Plt Count 182 K/mm3 (150-450) 11/17/16 09:40 MPV 11.3 fl (6.0-9.5) H 11/17/16 09:40 Immature Gran % (Auto) 0.40 % (0.001-0.429) 11/17/16 09:40 Immature Gran # (Auto) 0.05 K/mm3 (0.000-0.0310) H 11/17/16 09:40 Neutrophils % 85.2 % (42-75.0) H 11/17/16 09:40 Lymphocytes % 6.3 % (20-51) L 11/17/16 09:40 Monocytes % 7.3 % (0.0-9) 11/17/16 09:40 Eosinophils % 0.6 % (0.0-3.0) 11/17/16 09:40 Basophils % 0.2 % (0.0-1.0) 11/17/16 09:40 Nucleated RBC % 0.0 k/mm3 (0-1) 11/17/16 09:40 Neutrophils # 10.9 K/mm3 (1.3-6.0) H 11/17/16 09:40 Lymphocytes # 0.8 k/mm3 (1.5-3.5) L 11/17/16 09:40 Monocytes # 0.9 k/mm3 (0.0-1.0) 11/17/16 09:40 Eosinophils # 0.1 k/mm3 (0.0-0.7) 11/17/16 09:40 Absolute Basophils 0.0 k/mm3 (0.0-0.1) 11/17/16 09:40 PT 10.6 Seconds (9.4-11.4) 11/17/16 09:40 INR (Anticoag Therapy) 1.02 INR (0.90-1.10) 11/17/16 09:40 Sodium 139 mmol/L (132-142) 11/17/16 09:40 Plasma Sodium 141 mmol/L (130-142) 11/17/16 09:40 Potassium 4.1 mmol/L (3.4-4.6) 11/17/16 09:40 Chloride 102 mmol/L (97-106) 11/17/16 09:40 Carbon Dioxide 26.9 mmol/L (24-32.6) 11/17/16 09:40 Anion Gap 14.2 mmol/L (6.8-13.8) H 11/17/16 09:40 BUN 26 mg/dL (3-23) H 11/17/16 09:40 Creatinine 1.40 mg/dL (0.4-1.4) 11/17/16 09:40 Est GFR (Non-Af Amer) 38 mL/min (60-130) L 11/17/16 09:40 BUN/Creatinine Ratio 18.6 (9.0-21.6) 11/17/16 09:40 Random Glucose 207 mg/dL (70-110) H 11/17/16 09:40 Calcium 8.8 mg/dL (7.9-10.9) 11/17/16 09:40 Calcium Adj for Albumin 9.0 mg/dL (8.4-10.2) 11/17/16 09:40 Total Bilirubin 0.5 mg/dL (0.0-1.1) 11/17/16 09:40 AST 23 U/L (0-48) 11/17/16 09:40 ALT 23 U/L (19-67) 11/17/16 09:40 Alkaline Phosphatase 86 U/L (50-170) 11/17/16 09:40 Total Protein 7.2 gm/dL (6.2-8.2) 11/17/16 09:40 Albumin 3.3 gm/dl (3.4-5.0) L 11/17/16 09:40 Urine Color Yellow 11/17/16 10:35 Urine Appearance Clear 11/17/16 10:35 Urine pH 5.5 pH (5.0-7.0) 11/17/16 10:35 Ur Specific [place] >=1.030 SP.GR. (1.005-1.010) 11/17/16 10:35 Urine Protein 15 mg/dL (NEGATIVE) H 11/17/16 10:35 Urine Glucose (UA) Negative mg/dL (NEGATIVE) 11/17/16 10:35 Urine Ketones Negative mg/dL (NEGATIVE) 11/17/16 10:35 Urine Blood Negative /ul (NEGATIVE) 11/17/16 10:35 Urine Nitrate Negative (NEGATIVE) 11/17/16 10:35 Urine Bilirubin Negative mg/dl (NEGATIVE) 11/17/16 10:35 Prot Sulfosalicylic Acd Negative mg/dL (0) 11/17/16 10:35 Urine Urobilinogen Normal EU/dl (NORMAL) 11/17/16 10:35 Ur Leukocyte Esterase Negative /ul (NEGATIVE) 11/17/16 10:35 Urine RBC 0-5 /hpf (0-5) 11/17/16 10:35 Urine WBC None seen /hpf (0-5) 11/17/16 10:35 Ur Epithelial Cells 0-5 /hpf (0-5) 11/17/16 10:35 Urine Bacteria Trace (NONE) 11/17/16 10:35 Urine Culture Comments Culture to follow 11/17/16 10:35 Assessment/Plan - Narrative Narrative: Left hip fracture - consult orthopaedics, appreciate their help. - hip precautions - insert xie secondary to hip fracture CVA, lacunar - keep NPO until swallow study can be complete - aspiration risk too high - D5NS for IV fluids to keep patient hydrated since NPO. - MRA head and neck ordered to further assess stroke - continue ASA and statin when able to take oral. - PT/OT to consult - monitor on telemetry Diastolic CHF / pulmonary HTN - watch IV fluids / weight - will tend to overload quickly - daily weight - strict I&Os Anemia - check iron panel HTN - vital signs q 4 hours Code status: DNR VTE: heparin when ok with orthopaedics GI Proph: protonix - Assessment/Plan (1) Hip fracture, left Problem: Acute Qualifiers: Qualified Code(s): S72.002A - Fracture of unspecified part of neck of left femur, initial encounter for closed fracture (2) CVA (cerebral vascular accident) Problem: Acute Qualifiers: Qualified Code(s): I63.9 - Cerebral infarction, unspecified (3) RLS (restless legs syndrome) Problem: Chronic (4) HTN (hypertension) Problem: Chronic Qualifiers: Qualified Code(s): I10 - Essential (primary) hypertension (5) HLD (hyperlipidemia) Problem: Chronic Qualifiers: Qualified Code(s): E78.5 - Hyperlipidemia, unspecified (6) Diastolic CHF Problem: Chronic Qualifiers: Qualified Code(s): I50.32 - Chronic diastolic (congestive) heart failure (7) Pulmonary HTN Problem: Chronic (8) Anemia Problem: Chronic
[2016-11-17 13:22] LABS: Iron 19 mcg/dL (35-120); Transferrin Sat. (% Sat.) 7 % (15-55)
[2016-11-17] MEDS: MORPHINE SULFATE 2 MG/ML DISP.SYRIN IV PRN ×2 (13:24→19:20)
--- NOTE | 2016-11-17 13:56 | CONS ---
<Steffen Nichole - Last Filed: 11/17/16 14:54> [facility] - General Date of Service: 11/17/16 Narrative: Pt is an 86 y/o female with hx of a fall, possibly due to ischemic event. PMH includes colon cancer with resection, prior ischemic stroke, HTN, CHF. Pt presents tot he ER with acute left hip pain. She was in the bathroom this morning and fell onto her left side. She had acute pain, there was delay in her transport to the hospital due to the living situation. Pt denies any numbness or tingling, no pain in her knee or ankle. Patient lives in a [place] [facility], and was ambulatory with a walker prior to her fall today. Pt has used a walker since her first stroke approximately 18 months ago. Hx was gathered from patient and her son, who was in the room. Source: patient, family Exam Limitations: no limitations - History of Present Illness Allergies/Adverse Reactions: Allergies naproxen [From Naprosyn] Adverse Reaction (Intermediate, Verified 11/17/16 14:07 ) Other atorvastatin calcium [From Lipitor] Adverse Reaction (Mild, Verified 11/17/16 14 :07) LEG CRAMPS Home Medications: Home Medications Medication Instructions Recorded Last Taken rOPINIRole HCL [Requip] 1 mg PO HS 09/25/15 Unknown Aspirin 81 mg PO DAILY 04/15/16 Unknown Simvastatin [Zocor] 40 mg PO HS 04/15/16 Unknown Beta-Carotene(A) W-C , E/Min 1 tab PO BID 06/17/16 Unknown [Ocuvite] Furosemide [Lasix] 40 mg PO DAILY PRN 06/17/16 Unknown - Patient's Past Medical History Patient History - Medical: Anemia, Kidney stone Patient History - Cardiac/Respiratory: CHF, CVA/Stroke, Hypertension Patient History - Cancer: Colon Patient History - Surgical Procedures: Cataracts, Colonoscopy, Hysterectomy, Other Patient History - Other: None LMP (females 10-50): post men - Family History Father Family History - Medical: , No pertinent hx Family History - Cardiac/Respiratory: No pertinent hx Mother Family History - Medical: , Diabetes Type 2 Family History - Cardiac/Respiratory: Hypertension - Social History Living Situations: assisted living Abuse History: No History of abuse Psych History: No pertinent hx Smoking Status: Never smoker Have you smoked in the past 12 months: No Alcohol Use: none Drug Use: none - Immunizations Immunizations Up to Date: Yes Hx Pneumococcal Vaccination: Yes History of Influenza Vaccine: Yes Procedures ANESTH INJECT-SPIN CANAL (07/12/08) APPLICATION OF SPLINT (01/24/06) ARTERIAL BLD GAS MEASURE (02/11/13) BREAST DX PROCEDURE NEC (12/21/06) CLOSED ENDOSCOPIC BIOPSY OF LARGE INTESTINE (01/07/13) COLONOSCOPY (07/31/14) CONTINUOUS INVASIVE MECHANICAL VENTILATION <96 CONSEC HRS (09/05/11) DX ULTRASOUND-HEAD/NECK (05/31/01) ENDOSC POLYPECTOMY OF LG INTEST (06/23/12) ENDOSCOPIC BIOPSY OF RECTUM (01/07/13) ESOPHAGOGASTRODUODENOSCOPY [EGD] W/CLOSED BIOPSY (08/25/11) EXCISION OF DUODENUM, ENDO (06/17/16) INJECT STEROID (07/12/08) INSERT ENDOTRACHEAL TUBE (09/05/11) INTESTINAL ANASTOM NOS (02/11/13) INTRODUCE OTH THROMBOLYTIC IN PERIPH VEIN, PERC (12/24/15) OP RED-INT FIX RAD/ULNA (01/29/06) OPEN AND OTHER RESECTION OF TRANSVERSE COLON (02/11/13) OPEN AND OTHER RIGHT HEMICOLECTOMY (09/05/11) PACKED CELL TRANSFUSION (06/24/12) PERCUTAN NEEDLE BIOPSY OF BREAST (12/21/06) PERCUTAN NEEDLE BX OF THYROID GLAND (05/31/01) REPAIR LEFT HAND SKIN, EXTERNAL APPROACH (04/14/15) REPLACEMENT OF LEFT LENS WITH SYNTH SUB, PERC APPROACH (10/01/15) SPINAL CANAL INJECT NEC (07/12/08) TRANSFUSE NONAUT RED BLOOD CELLS IN PERIPH VEIN, PERC (06/17/16) Medications - Medications Current Medications: Current Medications Dextrose/Sodium Chloride (Dextrose 5%-0.9% Ns) 1,000 mls @ 125 mls/hr IV .Q8H PRN PRN Reason: HYDRATION Stop: 12/17/16 12:14 Last Admin: 11/17/16 12:41 Dose: 125 mls/hr Morphine Sulfate (Morphine Sulfate) 2 mg IV Q1H PRN PRN Reason: Moderate Pain Stop: 12/17/16 12:56 Last Admin: 11/17/16 13:24 Dose: 2 mg Physical Examination - Exam Vital Signs: Vital Signs - Last Taken Temp 36.4 C L 11/17/16 12:53 Pulse 68 11/17/16 12:53 Resp 16 11/17/16 12:53 BP 130/51 11/17/16 12:53 Pulse Ox 97 11/17/16 12:53 O2 Oxygen Delivery Method Room Air Constitutional: Present: Alert, Cooperative, No distress Respiratory: Present: no respiratory distress Extremity: Present: other - LLE--> ttp over great tuberosity, decreased ROM of hip, SILT, 5/5 FHL, EHL, PF, DF, dorsal pedis pulse 2+, mild edema consistant with injury to left thigh Eye contact: Present: cooperative - Results and Findings: Narrative: - 86 y/o female with an acute introchanteric left femur fracture. Discussed with patient and her son the concern of the injury, and the need for repair of the fracture. Discussed in detail the tx of conservative vs. surgical. Patient and her son agreed that surgical repair to allow WB would be preferred. Discussed with patient the risk of surgical repair with a intrameduallary nail including, but not limited to risk of infection, bleeding, blood clots. Patients son was concerned with her PMH interfering with possible surgical repair. Assured him that our internal medicine team would evaluate risk and benefits of surgical repair prior to moving forward with the surgery. At this point patient will be admitted to the floor for further evaluation by medicine to evaluate prior to surgical repair of left femur fracture. - Assessments/Findings (1) Hip fracture, left Problem: Acute QualifierTitle: Encounter type: initial encounter Fracture type: closed Qualified Code(s): S72.002A - Fracture of unspecified part of neck of left femur, initial encounter for closed fracture <Migue Weeks - Last Filed: 11/17/16 16:06> Procedures ANESTH INJECT-SPIN CANAL (07/12/08) APPLICATION OF SPLINT (01/24/06) ARTERIAL BLD GAS MEASURE (02/11/13) BREAST DX PROCEDURE NEC (12/21/06) CLOSED ENDOSCOPIC BIOPSY OF LARGE INTESTINE (01/07/13) COLONOSCOPY (07/31/14) CONTINUOUS INVASIVE MECHANICAL VENTILATION <96 CONSEC HRS (09/05/11) DX ULTRASOUND-HEAD/NECK (05/31/01) ENDOSC POLYPECTOMY OF LG INTEST (06/23/12) ENDOSCOPIC BIOPSY OF RECTUM (01/07/13) ESOPHAGOGASTRODUODENOSCOPY [EGD] W/CLOSED BIOPSY (08/25/11) EXCISION OF DUODENUM, ENDO (06/17/16) INJECT STEROID (07/12/08) INSERT ENDOTRACHEAL TUBE (09/05/11) INTESTINAL ANASTOM NOS (02/11/13) INTRODUCE OTH THROMBOLYTIC IN PERIPH VEIN, PERC (12/24/15) OP RED-INT FIX RAD/ULNA (01/29/06) OPEN AND OTHER RESECTION OF TRANSVERSE COLON (02/11/13) OPEN AND OTHER RIGHT HEMICOLECTOMY (09/05/11) PACKED CELL TRANSFUSION (06/24/12) PERCUTAN NEEDLE BIOPSY OF BREAST (12/21/06) PERCUTAN NEEDLE BX OF THYROID GLAND (05/31/01) REPAIR LEFT HAND SKIN, EXTERNAL APPROACH (04/14/15) REPLACEMENT OF LEFT LENS WITH SYNTH SUB, PERC APPROACH (10/01/15) SPINAL CANAL INJECT NEC (07/12/08) TRANSFUSE NONAUT RED BLOOD CELLS IN PERIPH VEIN, PERC (06/17/16) Medications - Medications Current Medications: Current Medications Heparin Sodium (Porcine) (Heparin Sodium) 5,000 units SC Q12H BENY Stop: 12/17/16 12:16 Last Admin: 11/17/16 14:27 Dose: 5,000 units Dextrose/Sodium Chloride (Dextrose 5%-0.9% Ns) 1,000 mls @ 125 mls/hr IV .Q8H PRN PRN Reason: HYDRATION Stop: 12/17/16 12:14 Last Admin: 11/17/16 12:41 Dose: 125 mls/hr Pantoprazole Sodium 40 mg/ (Sodium Chloride) 100 mls @ 400 mls/hr IV Q24H BENY Stop: 12/17/16 13:01 Last Admin: 11/17/16 14:29 Dose: 400 mls/hr Iron Sucrose 500 mg/ Sodium (Chloride) 275 mls @ 70 mls/hr IV ONCE ONE Stop: 11/17/16 18:25 Last Admin: 11/17/16 15:55 Dose: 70 mls/hr Morphine Sulfate (Morphine Sulfate) 2 mg IV Q1H PRN PRN Reason: Moderate Pain Stop: 12/17/16 12:56 Last Admin: 11/17/16 13:24 Dose: 2 mg Physical Examination - Exam Vital Signs: Vital Signs - Last Taken Temp 36.4 C L 11/17/16 14:09 Pulse 68 11/17/16 14:09 Resp 18 11/17/16 14:09 BP 130/51 11/17/16 14:09 Pulse Ox 97 11/17/16 14:09 O2 Oxygen Delivery Method Nasal Cannula - Results and Findings: Narrative: Saw and examined patient today. She presents with a displaced L intertrochanteric femur fracture after a fall and suspected stroke/TIA. On exam , her leg is shortened and externally rotated. She has intact sensation and good capillary refill distally. Plain films demonstrate the above injury. I discussed treatment options with the patient and her family including non- operative management with pain control and protected weight bearing vs surgical fixation. I explained the increased risk of mortality at 1 year with non- operative treatment and the risk reduction with surgical fixation. I discussed the risks of surgery in detail with the patient including, but not limited to, infection, bleeding, malunion/nonunion, neurovascular injury, implant failure, persistent pain, stiffness, malrotation, leg length discrepancy, DVT/PE, and . After discussion, she wishes to proceed with surgery pending clearance from the Medicine team. They are currently wanting to obtain an MRI of her brain for further evaluation of her stroke symptoms. We will plan on taking her to the OR tomorrow morning for closed reduction and cephalomedullary fixation of her L hip pending Medical optimization/clearance. Migue Weeks MD
[2016-11-17] MEDS: PANTOPRAZOLE SODIUM 40 MG in NORMAL SALINE 100 ML IV SCH (14:29)
[2016-11-17] MEDS ORDERED: IRON SUCROSE COMPLEX 500 MG in NORMAL SALINE 250 ML IV ONE (14:30)
[2016-11-17] MEDS ORDERED: HYDROcodone/ACETAMINOPHEN 1 EACH TABLET ONE (20:37)
[2016-11-17] MEDS ORDERED: FUROSEMIDE 40 MG TABLET PO PRN (22:17)
[2016-11-17] MEDS: SIMVASTATIN 40 MG TABLET PO SCH (22:50)
[2016-11-17] MEDS: BETA-CAROTENE(A) W-C , E/MIN 1 TAB TABLET PO SCH (22:53)
[2016-11-17] MEDS: rOPINIRole HCL 1 MG TABLET PO SCH (22:53)
[2016-11-18] MEDS: MORPHINE SULFATE 2 MG/ML DISP.SYRIN IV PRN ×2 (01:25→07:51)
[2016-11-18] MEDS: DEXTROSE 5%-NORMAL SALINE 1,000 ML IV PRN (06:46)
[2016-11-18] MEDS: BETA-CAROTENE(A) W-C , E/MIN 1 TAB TABLET PO SCH ×2 (08:01→20:55)
[2016-11-18] MEDS: ASPIRIN 81 MG TAB.CHEW PO SCH (08:01)
[2016-11-18] MEDS: FERROUS SULFATE 325 MG TABLET PO SCH ×2 (08:01→16:31)
[2016-11-18] MEDS ORDERED: DEXTROSE 5%-NORMAL SALINE 1,000 ML IV ONE (10:10)
[2016-11-18] MEDS ORDERED: ceFAZolin SODIUM 1 GM in DEXTROSE 5 % IN WATER 50 ML IV ONE ×2 (10:24)
[2016-11-18] MEDS ORDERED: DEXTROSE 5%-LACTATED RINGERS 1,000 ML IV ONE (10:30)
[2016-11-18] MEDS ORDERED: RINGER'S SOLUTION,LACTATED 1,000 ML IV ONE (10:30)
[2016-11-18] MEDS ORDERED: ceFAZolin SODIUM 1 GM VIAL IV PRN (10:30)
[2016-11-18] MEDS ORDERED: ceFAZolin SODIUM 2 GM in DEXTROSE 5 % IN WATER 50 ML IV ONE ×2 (10:45)
--- NOTE | 2016-11-18 11:44 | OR ---
Operative Report - Dictated Report Narrative: Date: 11/18/2016 Surgeon: Migue Weeks M.D. Museum Exhibit Designer: Steffen Nichole PA-C Preoperative diagnosis: Left Intertrochanteric femur fracture Postoperative diagnosis: Left Intertrochanteric femur fracture Operations and procedures: 1. Closed reduction, cephalo-medullary fixation left intertrochanteric femur fracture 2. Intraoperative interpretation of radiographs Anesthesia: Spinal Specimens: None Estimated blood loss: 250 Milliliters Retained implants: [employer] Trigen InterTAN 130 degree size 11.5 mm by 20 centimeter nail with 90 millimeter lag screw and 85 millimeter compression screw , with distal locking screw Complications: None Indications for procedure: Ramona is an 86-year-old female with a history of stroke, colon cancer who injured the left leg after a fall from standing height thought to be secondary to a cerebral ischemic event. They were admitted to the hospital after being evaluated in the emergency department. Once the medical provider felt that they were stable for surgical treatment, the risks and benefits alternatives were discussed. The risks of , blood clots, bleeding, infection, nerve/ tendon/blood vessel injury, malunion, nonunion, failure of implants, painful implants, arthrosis, and need for additional procedures were discussed. The extremity was marked and consent was obtained on the floor. Procedure: After marking the operative extremity on the floor, the patient was taken to the operating room. A timeout was performed. IV antibiotics consisting of 2 g of Ancef were administered. A spinal anesthetic was induced by anesthesia, and the patient was then placed onto a fracture table with a well-padded perineal post. The nonoperative leg was placed in a well-padded well leg beltre in lithotomy position with an SCD on the leg. The operative leg was placed in a well-padded traction boot. Longitudinal traction, internal rotation, and adduction were utilized in order to reduce the fracture. Preliminary images were attained utilizing C-arm in both the AP and lateral views. This confirmed that we had obtained adequate visualization of the fracture as well as reduction. Next the hip was then prepped and draped in a standard sterile fashion. Next the guidewire was placed percutaneously proximal to the greater trochanter to yoshi a starting point at the tip of the greater trochanter centered on the lateral view. This was passed down to the level below the lesser trochanter. A scalpel was utilized in order to dissect down to the greater trochanter in order to lace the soft tissue protector down to bone. The entry drill was then placed down the proximal femur to the level of the lesser trochanter. The above nail was then selected and impacted into place. The outrigger was utilized in order to confirm the appropriate depth of the nail. Using the alignment device on the outrigger, a darrius incision was made over the lateral femur. Sharp dissection was carried through the iliotibial band down to the proximal femur. The guidewire was was placed into the femoral head in a center-center position on AP and lateral views. The tip apex distance less than 25 mm combined was obtained. Once we felt that we had placed a guidewire in the appropriate position, it was measured. Next the compression screw site was drilled through the lateral femoral cortex. This was then drilled down to the appropriate depth again confirming that we were within the confines the bone. The derotational bar was then placed and the lag screw was drilled. The lag screw was then secured in place seating fully ensuring that we were within the confines of the bone. The compression screw was then inserted allowing for compression while releasing the traction on the leg. Using C-arm this was visualized to allow for compression across the fracture site. Once is was felt we had adequately stabilized the intertrochanteric fracture, the distal interlocking screw was placed in a static position confirmed to be the appropriate length and within the nail on both AP and lateral views. The nail was secured allowing for controlled compression and the outrigger was removed. The wounds were then thoroughly irrigated. Final images were obtained. The hip was placed through range of motion and showed no crepitance. The deep fascia was closed with 0 Vicryl, the subcutaneous tissue with 3-0 Vicryl, and the skin was closed with saad. Sterile dressings of Xeroform, 4 x 4, and tegaderm were applied. All sponge, sharp, and instrument counts were correct prior to closing the wounds. The patient was then awoken and transferred to the postanesthesia care unit in stable condition.
[2016-11-18] MEDS: PANTOPRAZOLE SODIUM 40 MG in NORMAL SALINE 100 ML IV SCH (13:16)
[2016-11-18] MEDS ORDERED: MAGNESIUM HYDROXIDE 30 ML UDC PO PRN (13:21)
[2016-11-18] MEDS ORDERED: HYDROcodone/ACETAMINOPHEN 1 EACH TABLET PO PRN ×2 (13:21)
[2016-11-18] MEDS ORDERED: MAG HYDROX/ALUMINUM HYD/SIMETH 30 ML UDC PO PRN (13:21)
[2016-11-18] MEDS ORDERED: PROMETHAZINE HCL 5 MG in DEXTROSE 5 % IN WATER 50 ML IV PRN ×2 (13:21)
[2016-11-18] MEDS: DEXTROSE 5%-LACTATED RINGERS 1,000 ML IV PRN ×2 (13:41→23:58)
[2016-11-18] MEDS: ceFAZolin SODIUM 1 GM in DEXTROSE 5 % IN WATER 100 ML IV SCH ×6 (14:03→20:56)
[2016-11-18] MEDS: rOPINIRole HCL 1 MG TABLET PO SCH (20:55)
[2016-11-18] MEDS: SENNOSIDES/DOCUSATE SODIUM 1 TAB TABLET PO SCH (20:55)
[2016-11-18] MEDS: SIMVASTATIN 40 MG TABLET PO SCH (20:55)
[2016-11-18] MEDS ORDERED: NALOXONE HCL 0.4 MG/ML VIAL IV ONE ×2 (21:30→22:31)
[2016-11-18] MEDS ORDERED: NALOXONE HCL 1 MG/1 ML SYRG ONE (21:49)
[2016-11-19] MEDS ORDERED: ceFAZolin SODIUM 1 GM in DEXTROSE 5 % IN WATER 100 ML IV SCH ×2 (03:00)
[2016-11-19] MEDS ORDERED: KETOROLAC TROMETHAMINE 15 MG/ML VIAL IV ONE (03:51)
[2016-11-19 06:07] LABS: Mean Cell Volume 96.2 fl (78-100); Mean Corpuscular Hemoglobin 31.4 pg (27-31); Mean Corpuscular Hgb Conc 32.6 g/dl (32-36); Mean Platelet Volume 11.9 fl (6.0-9.5); Platelet Count 129 K/mm3 (150-450); Red Blood Count 2.36 M/mm3 (4.2-5.4); Red Cell Distribution Width 14.2 % (11.5-14.0); White Blood Count 9.3 K/mm3 (4.0-10.5)
[2016-11-19 06:16] LABS: Hematocrit 22.7 % (37.0-47.0); Hemoglobin 7.4 gm/dL (12.5-16.0)
[2016-11-19 06:17] LABS: Anion Gap 13.4 mmol/L (6.8-13.8); BUN/Creatinine Ratio 13.3 (9.0-21.6); Calcium * 7.9 mg/dL (7.9-10.9); Carbon Dioxide 23.1 mmol/L (24-32.6); Estimated Creat Clear 31.2; Potassium 3.5 mmol/L (3.4-4.6)
[2016-11-19] MEDS ORDERED: ACETAMINOPHEN 325 MG TABLET PO ONE (06:43)
[2016-11-19] MEDS ORDERED: diphenhydrAMINE HCL 50 MG/ML VIAL IV ONE (06:43)
[2016-11-19] MEDS: FERROUS SULFATE 325 MG TABLET PO SCH ×2 (08:21→16:18)
[2016-11-19] MEDS: ASPIRIN 81 MG TAB.CHEW PO SCH (08:21)
[2016-11-19] MEDS: BETA-CAROTENE(A) W-C , E/MIN 1 TAB TABLET PO SCH ×2 (08:21→20:49)
[2016-11-19] MEDS ORDERED: FUROSEMIDE 10 MG/ML VIAL IV ONE ×2 (12:20→17:18)
--- NOTE | 2016-11-19 13:30 | PN ---
Subjective - Date and Time Seen Date: 11/19/16 Time: 08:35 Subjective Narrative: Pt had no acute events overnight. Pt is groggy and has mild difficulty focusing. Pts daughter reports she has been very sleepy since surgery yesterday. Pt was aroused and stated she had some pain in her left hip. Objective - Vitals Vitals: Last Vital Signs Temp 36.9 C 11/19/16 13:01 Pulse 89 11/19/16 13:01 Resp 30 H 11/19/16 13:01 BP 134/48 11/19/16 13:01 Pulse Ox 98 11/19/16 13:01 - Abnormal Lab Findings Abnormal Lab Findings: Abnormal Lab Results 11/19/16 11/19/16 11/19/16 Range/Units 05:18 05:18 07:05 RBC 2.36 L (4.2-5.4) M/mm3 Hgb 7.4 L* D (12.5-16.0) gm/dL Hct 22.7 L* D (37.0-47.0) % MCH 31.4 H (27-31) pg RDW 14.2 H (11.5-14.0) % Plt Count 129 L (150-450) K/mm3 MPV 11.9 H (6.0-9.5) fl Sodium 143 H (132-142) mmol/L Plasma Sodium 144 H (130-142) mmol/L Chloride 110 H (97-106) mmol/L Carbon Dioxide 23.1 L (24-32.6) mmol/L Est GFR (Non-Af Amer) 53 L D (60-130) mL/min Random Glucose 183 H (70-110) mg/dL Crossmatch See Detail - Exam Constitutional: Present: No distress, Lethargic Respiratory: Present: no respiratory distress Extremity: Present: other - LLE--> bandages c/d/i, moderate edema of left thigh , distal pulses 2+, 4+/5 strength with PF/DF/EHL/FHL Cauti Physician Documentation - Urinary Catheter Management Urethral (Mack) Date of Insertion: 11/17/16 Time of Insertion: 10:39 Assessment/Plan Plan Narrative: - 86 y/o female post-op day #1 s/p closed reduction, cephalo-medullary fixation left intertrochanteric femur fracture - WBAT on LLE - PT/OT progress as tolerated - Oral diet as tolerated - Pain management with [place] and tylenol, per medicine - Hgb 7.4, per medicine will transfuse - DVT prophylaxis with patricia hutchinson, SCDs, d/c 81mg ASA, begin Lovenox for 10 days post-op - Acute TIA vs. Stroke, management per medicine - CHF, management per medicine - Problems/Diagnosis (1) Hip fracture, left Problem: Acute Qualifiers: Encounter type: initial encounter Fracture type: closed Qualified Code(s) : S72.002A - Fracture of unspecified part of neck of left femur, initial encounter for closed fracture
[2016-11-19] MEDS: ENOXAPARIN SODIUM 40 MG/0.4 ML SYRG SC SCH (15:29)
[2016-11-19] MEDS: PANTOPRAZOLE SODIUM 40 MG in NORMAL SALINE 100 ML IV SCH (17:09)
[2016-11-19 17:53] LABS: Hematocrit 33.6 % (37.0-47.0); Hemoglobin 11.2 gm/dL (12.5-16.0); Mean Cell Volume 91.6 fl (78-100); Mean Corpuscular Hemoglobin 30.5 pg (27-31); Mean Corpuscular Hgb Conc 33.3 g/dl (32-36); Mean Platelet Volume 11.1 fl (6.0-9.5); Platelet Count 137 K/mm3 (150-450); Red Blood Count 3.67 M/mm3 (4.2-5.4); Red Cell Distribution Width 15.5 % (11.5-14.0); White Blood Count 10.4 K/mm3 (4.0-10.5)
[2016-11-19] MEDS: rOPINIRole HCL 1 MG TABLET PO SCH (20:49)
[2016-11-19] MEDS: SENNOSIDES/DOCUSATE SODIUM 1 TAB TABLET PO SCH (20:49)
[2016-11-19] MEDS: SIMVASTATIN 40 MG TABLET PO SCH (20:50)
--- NOTE | 2016-11-19 22:34 | PN ---
Subjective - Date and Time Seen Date: 11/18/16 Time: 12:32 Subjective Narrative: Continued slurred speech but alert. Reported continued weakness to left extremities. No fever, chills, n/v. Objective - Vitals Vitals: Last Vital Signs VSS, Afebrile - Abnormal Lab Findings Abnormal Lab Findings: Abnormal Lab Results - Exam Constitutional: Present: Alert, Oriented x3, Cooperative ENT Exam: Present: hard of hearing Respiratory: Present: lungs clear, normal breath sounds Cardiovascular/Chest: Present: regular rate, rhythm, no murmur Abdomen: Present: Normal bowel sounds, soft, nontender, nondistended Cauti Physician Documentation - Urinary Catheter Management Urethral (Mack) Date of Insertion: 11/17/16 Time of Insertion: 10:39 Assessment/Plan - Problems/Diagnosis (1) Hip fracture, left Problem: Acute Qualifiers: Encounter type: initial encounter Fracture type: closed Qualified Code(s) : S72.002A - Fracture of unspecified part of neck of left femur, initial encounter for closed fracture Narrative: Benefits of surgery outweigh risks, medically cleared. Following with ortho. (2) CVA (cerebral vascular accident) Problem: Acute Qualifiers: CVA mechanism: unspecified Qualified Code(s): I63.9 - Cerebral infarction, unspecified Narrative: Patient to be on heparin and statin following surgery. Will work with PT, OT following surgery.
--- NOTE | 2016-11-19 22:35 | PN ---
Subjective - Date and Time Seen Date: 11/19/16 Time: 12:56 Subjective Narrative: Patient somnolent today. Awakens briefly. No fever, chills, emesis. Objective - Vitals Vitals: Last Vital Signs Temp 37 C 11/19/16 19:21 Pulse 90 11/19/16 19:21 Resp 20 11/19/16 19:21 BP 138/56 11/19/16 19:21 Pulse Ox 100 11/19/16 19:21 - Abnormal Lab Findings Abnormal Lab Findings: Abnormal Lab Results 11/19/16 11/19/16 11/19/16 Range/Units 05:18 05:18 07:05 RBC 2.36 L (4.2-5.4) M/mm3 Hgb 7.4 L* D (12.5-16.0) gm/dL Hct 22.7 L* D (37.0-47.0) % MCH 31.4 H (27-31) pg RDW 14.2 H (11.5-14.0) % Plt Count 129 L (150-450) K/mm3 MPV 11.9 H (6.0-9.5) fl Sodium 143 H (132-142) mmol/L Plasma Sodium 144 H (130-142) mmol/L Chloride 110 H (97-106) mmol/L Carbon Dioxide 23.1 L (24-32.6) mmol/L Est GFR (Non-Af Amer) 53 L D (60-130) mL/min Random Glucose 183 H (70-110) mg/dL Crossmatch See Detail 11/19/16 Range/Units 17:45 RBC 3.67 L (4.2-5.4) M/mm3 Hgb 11.2 L (12.5-16.0) gm/dL Hct 33.6 L (37.0-47.0) % MCH (27-31) pg RDW 15.5 H (11.5-14.0) % Plt Count 137 L (150-450) K/mm3 MPV 11.1 H (6.0-9.5) fl Sodium (132-142) mmol/L Plasma Sodium (130-142) mmol/L Chloride (97-106) mmol/L Carbon Dioxide (24-32.6) mmol/L Est GFR (Non-Af Amer) (60-130) mL/min Random Glucose (70-110) mg/dL Crossmatch - Exam Constitutional: Present: Somnolent Respiratory: Present: rales Cardiovascular/Chest: Present: regular rate, rhythm, no murmur Abdomen: Present: Normal bowel sounds, soft, nontender, nondistended Extremity: Present: lower extremity edema Skin Exam: Present: normal color, warm/dry, no cyanosis Cauti Physician Documentation - Urinary Catheter Management Urethral (Mack) Date of Insertion: 11/17/16 Time of Insertion: 10:39 Assessment/Plan Plan Narrative: Ramona is somnolent today. Will continue to monitor. Suspect related to pain medications, anesthesia, and stroke. Expect improvement. Unable to work with therapies currently. Patient appears a little edematous today, will monitor. Give lasix prn. - Problems/Diagnosis (1) CVA (cerebral vascular accident) Problem: Acute Qualifiers: CVA mechanism: unspecified Qualified Code(s): I63.9 - Cerebral infarction, unspecified (2) Hip fracture, left Problem: Acute Qualifiers: Encounter type: initial encounter Fracture type: closed Qualified Code(s) : S72.002A - Fracture of unspecified part of neck of left femur, initial encounter for closed fracture
[2016-11-20 05:52] LABS: Hematocrit 32.4 % (37.0-47.0); Hemoglobin 10.9 gm/dL (12.5-16.0); Mean Cell Volume 90.3 fl (78-100); Mean Corpuscular Hemoglobin 30.4 pg (27-31); Mean Corpuscular Hgb Conc 33.6 g/dl (32-36); Platelet Count 155 K/mm3 (150-450); Red Blood Count 3.59 M/mm3 (4.2-5.4); Red Cell Distribution Width 15.4 % (11.5-14.0); White Blood Count 10.8 K/mm3 (4.0-10.5)
[2016-11-20 06:08] LABS: Anion Gap 12.3 mmol/L (6.8-13.8); BUN/Creatinine Ratio 16.9 (9.0-21.6); Calcium * 8.3 mg/dL (7.9-10.9); Carbon Dioxide 28.7 mmol/L (24-32.6); Estimated Creat Clear 27.8
[2016-11-20] MEDS ORDERED: POTASSIUM CHLORIDE 400 ML IV ONE (08:28)
[2016-11-20] MEDS ORDERED: WATER FOR INJECTION STERILE IV SCH (09:00)
[2016-11-20] MEDS ORDERED: POTASSIUM CHLORIDE IV SCH (09:00)
--- NOTE | 2016-11-20 09:25 | PN ---
Subjective - Date and Time Seen Date: 11/20/16 Time: 09:18 Subjective Narrative: No acute events. Pt does seem to being have some aphasia. Pt is awake and alert , but unable to express herself. Pt has not been able to tolerate any orals currently. Medicine following for possible stroke complications. Objective - Vitals Vitals: Last Vital Signs Temp 37.3 C 11/20/16 06:35 Pulse 93 11/20/16 06:35 Resp 24 H 11/20/16 06:35 BP 142/67 11/20/16 06:35 Pulse Ox 100 11/20/16 06:35 - Abnormal Lab Findings Abnormal Lab Findings: Abnormal Lab Results 11/19/16 11/19/16 11/20/16 Range/Units 07:05 17:45 05:45 WBC 10.8 H (4.0-10.5) K/mm3 RBC 3.67 L 3.59 L (4.2-5.4) M/mm3 Hgb 11.2 L 10.9 L (12.5-16.0) gm/dL Hct 33.6 L 32.4 L (37.0-47.0) % RDW 15.5 H 15.4 H (11.5-14.0) % Plt Count 137 L (150-450) K/mm3 MPV 11.1 H 11.0 H (6.0-9.5) fl Sodium (132-142) mmol/L Plasma Sodium (130-142) mmol/L Potassium (3.4-4.6) mmol/L Est GFR (Non-Af Amer) (60-130) mL/min Random Glucose (70-110) mg/dL Crossmatch See Detail 11/20/16 Range/Units 05:45 WBC (4.0-10.5) K/mm3 RBC (4.2-5.4) M/mm3 Hgb (12.5-16.0) gm/dL Hct (37.0-47.0) % RDW (11.5-14.0) % Plt Count (150-450) K/mm3 MPV (6.0-9.5) fl Sodium 144 H (132-142) mmol/L Plasma Sodium 145 H (130-142) mmol/L Potassium 3.0 L (3.4-4.6) mmol/L Est GFR (Non-Af Amer) 46 L (60-130) mL/min Random Glucose 136 H (70-110) mg/dL Crossmatch - Exam Constitutional: Present: Alert, No distress Respiratory: Present: no respiratory distress Extremity: Present: other - LLE-->bandages c/d/i, SILT, dorsal pedis pulse 2+, 5 /5 EHL/FHL/PF/DF Cauti Physician Documentation - Urinary Catheter Management Urethral (Mack) Date of Insertion: 11/17/16 Time of Insertion: 10:39 Assessment/Plan Plan Narrative: - 86 y/o female post-op day #2 s/p closed reduction, cephalo-medullary fixation left intertrochanteric femur fracture - WBAT on LLE - PT/OT progress as tolerated - Oral diet as tolerated - Pain management with [place] and tylenol, per medicine - Hgb 10.9, stable - DVT prophylaxis with patricia hose, SCDs, Lovenox - Acute TIA vs. Stroke, management per medicine - CHF, management per medicine - Problems/Diagnosis (1) Hip fracture, left Problem: Acute Qualifiers: Encounter type: initial encounter Fracture type: closed Qualified Code(s) : S72.002A - Fracture of unspecified part of neck of left femur, initial encounter for closed fracture
[2016-11-20] MEDS: WATER FOR INJECTION STERILE IV SCH ×4 (09:30→12:54)
[2016-11-20] MEDS: POTASSIUM CHLORIDE IV SCH ×4 (09:30→12:54)
[2016-11-20] MEDS: FERROUS SULFATE 325 MG TABLET PO SCH ×2 (09:37→16:48)
[2016-11-20] MEDS: BETA-CAROTENE(A) W-C , E/MIN 1 TAB TABLET PO SCH ×2 (09:37→20:12)
[2016-11-20] MEDS: KETOROLAC TROMETHAMINE 15 MG/ML VIAL IV PRN ×2 (13:46→19:53)
[2016-11-20] MEDS: ASPIRIN 81 MG TAB.CHEW PO SCH (13:52)
[2016-11-20] MEDS: PANTOPRAZOLE SODIUM 40 MG in NORMAL SALINE 100 ML IV SCH (14:14)
[2016-11-20] MEDS: ENOXAPARIN SODIUM 40 MG/0.4 ML SYRG SC SCH (14:14)
[2016-11-20] MEDS: rOPINIRole HCL 1 MG TABLET PO SCH (20:13)
[2016-11-20] MEDS: SENNOSIDES/DOCUSATE SODIUM 1 TAB TABLET PO SCH (20:13)
[2016-11-20] MEDS: SIMVASTATIN 40 MG TABLET PO SCH (20:13)
--- NOTE | 2016-11-20 23:12 | PN ---
Progess Note - Interim Narrative: 11/20/16 22:50 Patient seen with family at the bedside: repeated CT head and U/S carotid were discussed with family, sales professional neurologist Dr Be and Dr Hidalgo. Ct head: new large middle cerebral artery territory cerebral infract.There is localized right cerebral mas effect suggestive of edema, w/o evidence of midline shift or herniation. U/S carotid:Left internal stenosis 70-79% and right internal stenosis 50-59%. Per neurologist Pt not a candidate for MRI due to recent surgery, no TPA, No heparin due to risk of hemorrhage. Monitor for aspiration and have swallow eval if not yet done. continue with medical management and repeat Ct head tomorrow.keep NPO if lethargic. pt daughter agreeable for halfway placement, where as son undecided and want pt home.
--- NOTE | 2016-11-21 01:10 | PN ---
Subjective - Date and Time Seen Date: 11/20/16 Time: 08:15 Subjective Narrative: Patient awakens to verbal stimulus but remains somnolent. When awakened patient answers questions appropriately but is difficult to understand. Able to open eyes, squeeze right hand, and shake head yes or no to questions. Speech evaluated patient today and recommended pureed with nectar thickened liquids. Discussed with Neurology who will consult with patient. Recommend repeat head CT , carotid duplex, and echo. Suspect altered mental status due to medications for pain and recent surgery. Objective - Vitals Vitals: Last Vital Signs Temp 36.6 C 11/20/16 23:00 Pulse 75 11/20/16 23:22 Resp 18 11/20/16 23:00 BP 130/55 11/20/16 23:00 Pulse Ox 97 11/20/16 23:00 - Abnormal Lab Findings Abnormal Lab Findings: Abnormal Lab Results 11/20/16 11/20/16 Range/Units 05:45 05:45 WBC 10.8 H (4.0-10.5) K/mm3 RBC 3.59 L (4.2-5.4) M/mm3 Hgb 10.9 L (12.5-16.0) gm/dL Hct 32.4 L (37.0-47.0) % RDW 15.4 H (11.5-14.0) % MPV 11.0 H (6.0-9.5) fl Sodium 144 H (132-142) mmol/L Plasma Sodium 145 H (130-142) mmol/L Potassium 3.0 L (3.4-4.6) mmol/L Est GFR (Non-Af Amer) 46 L (60-130) mL/min Random Glucose 136 H (70-110) mg/dL - Exam Constitutional: Present: Somnolent ENT Exam: Present: hearing grossly normal Respiratory: Present: lungs clear, normal breath sounds Cardiovascular/Chest: Present: regular rate, rhythm, no murmur Abdomen: Present: Normal bowel sounds, soft, nontender, nondistended Skin Exam: Present: normal color, warm/dry, no cyanosis Neurologic: Present: other - Follows commands of opening eyes, squeezing right hand. Unable to move left arm. Shakes head yes or no appropriately to questions , appears to recognize family. Speaks, but difficult to understand. Tongue is dry, patient appears to be a open mouth breather while sleeping Cauti Physician Documentation - Urinary Catheter Management Urethral (Mack) Date of Insertion: 11/17/16 Time of Insertion: 10:39 Assessment/Plan - Problems/Diagnosis (1) CVA (cerebral vascular accident) Problem: Acute Qualifiers: CVA mechanism: unspecified Qualified Code(s): I63.9 - Cerebral infarction, unspecified Narrative: Patient with new stroke. History of prior stroke. Acute stroke causing left sided weakness and suspect caused her fall which caused left hip fracture. Patient also has increased somnolence, unclear if this is stroke related, pain medication, or anesthesia related, possibly multifactorial. Neurology consulted and recommended repeat CT, obtaining carotid US and echocardiogram. Patient had not been taking 81mg aspirin. Now after surgery will restart Aspirin 325mg daily and lovenox for post op protocols as well as treatment of stroke. Must be cautious as patient has history of GI bleed. Patient is on statin. Unable to do MRI initially as patient was unable to hold still. Hip fracture repaired for pain control. Unable to perform MRI at this time due to recent surgery. TPA was contraindicated due to time of presentation and hip fracture. PT, OT, and ST consulted. Therapies unable to work with patient significantly due to somnolence , but this does appear to be improving some today, may be able to work on more therapy. ST evaluated patient today and recommend nectar thick liquids and pureed foods. May crush pills. (2) Hip fracture, left Problem: Acute Qualifiers: Encounter type: initial encounter Fracture type: closed Qualified Code(s) : S72.002A - Fracture of unspecified part of neck of left femur, initial encounter for closed fracture Narrative: POD 2 - Hip is doing well per ortho. Therapy as able, but limited due to stroke and somnolence. (3) Acute blood loss anemia Problem: Acute Narrative: Secondary to left hip fracture and surgical repair. Transfused 2 units yesterday , Hgb improved. Will monitor.
[2016-11-21 05:43] LABS: Hematocrit 32.5 % (37.0-47.0); Hemoglobin 10.5 gm/dL (12.5-16.0); Mean Cell Volume 94.2 fl (78-100); Mean Corpuscular Hemoglobin 30.4 pg (27-31); Mean Corpuscular Hgb Conc 32.3 g/dl (32-36); Platelet Count 158 K/mm3 (150-450); Red Blood Count 3.45 M/mm3 (4.2-5.4); Red Cell Distribution Width 15.3 % (11.5-14.0); White Blood Count 9.3 K/mm3 (4.0-10.5)
[2016-11-21 05:58] LABS: Anion Gap 12.1 mmol/L (6.8-13.8); BUN/Creatinine Ratio 32.7 (9.0-21.6); Calcium * 8.6 mg/dL (7.9-10.9); Carbon Dioxide 24.9 mmol/L (24-32.6)
[2016-11-21] MEDS: BETA-CAROTENE(A) W-C , E/MIN 1 TAB TABLET PO SCH ×2 (09:05→20:52)
[2016-11-21] MEDS: FERROUS SULFATE 325 MG TABLET PO SCH ×3 (09:05→16:28)
[2016-11-21] MEDS: ASPIRIN 81 MG TAB.CHEW PO SCH (09:05)
--- NOTE | 2016-11-21 09:05 | PN ---
Subjective - Date and Time Seen Date: 11/21/16 Time: 09:00 Subjective Narrative: Pt has had decrease in alertness and awareness since yesterday. Pt was improving with only symptom difficultly speaking. Pt today is still can be aroused to verbal stimulus and will follow commands, but is unable to communicate back. Pt difficult to understand, will open eyes. Objective - Vitals Vitals: Last Vital Signs Temp 36.6 C 11/21/16 07:51 Pulse 88 11/21/16 07:51 Resp 20 11/21/16 07:51 BP 156/62 11/21/16 07:51 Pulse Ox 94 11/21/16 07:51 - Abnormal Lab Findings Abnormal Lab Findings: Abnormal Lab Results 11/21/16 11/21/16 Range/Units 05:35 05:35 RBC 3.45 L (4.2-5.4) M/mm3 Hgb 10.5 L (12.5-16.0) gm/dL Hct 32.5 L (37.0-47.0) % RDW 15.3 H (11.5-14.0) % MPV 11.0 H (6.0-9.5) fl Chloride 109 H (97-106) mmol/L BUN 37 H D (3-23) mg/dL Est GFR (Non-Af Amer) 48 L (60-130) mL/min BUN/Creatinine Ratio 32.7 H (9.0-21.6) Random Glucose 116 H (70-110) mg/dL - Exam Constitutional: Present: No distress Respiratory: Present: no respiratory distress Extremity: Present: other - LLE--> bandages changed, clean and dry, ttp over lateral thigh, edema appropriate post-operatively, 2+ dorsal pedis pulses, 5/5 EHL/FHL/PF/DF, incsions without erythema or drainage Cauti Physician Documentation - Urinary Catheter Management Urethral (Mack) Date of Insertion: 11/17/16 Time of Insertion: 10:39 Assessment/Plan Plan Narrative: - 86 y/o female post-op day #2 s/p closed reduction, cephalo-medullary fixation left intertrochanteric femur fracture - Bandages clean/dry, needed reinforcement, spoke with nursing to reinforce bandages on LLE - WBAT on LLE - PT/OT progress as tolerated - Diet, per medicine - Pain management with [place] and tylenol, per medicine - Hgb 10.5, stable - DVT prophylaxis with patricia hose, SCDs, Lovenox - Acute TIA vs. Stroke, management per medicine - CHF, management per medicine - Problems/Diagnosis (1) Hip fracture, left Problem: Acute Qualifiers: Encounter type: initial encounter Fracture type: closed Qualified Code(s) : S72.002A - Fracture of unspecified part of neck of left femur, initial encounter for closed fracture
[2016-11-21] MEDS ORDERED: ACETAMINOPHEN 650 MG SUPP.RECT RC PRN (12:59)
--- NOTE | 2016-11-21 13:06 | PN ---
Subjective - Date and Time Seen Date: 11/21/16 Time: 12:57 Subjective Narrative: patient is with ST. Poor solid intake, does better with liquids. poor urine output. Objective - Review of Systems Generalized/Overall Review: Reports: Weakness. Denies: Chills, Fever EENTM: Reports: No Symptoms Reported Respiratory: Denies: Cough, Shortness of Breath Cardiac: Denies: Chest Pain, Edema, Palpitations Abdominal: Denies: Nausea, Vomiting Genitourinary Symptoms: Denies: Urgency, Frequency Neurological: Reports: Weakness - Vitals Vitals: Last Vital Signs Temp 36.8 C 11/21/16 12:22 Pulse 87 11/21/16 12:22 Resp 18 11/21/16 12:22 BP 192/69 11/21/16 12:22 Pulse Ox 93 11/21/16 12:22 - Abnormal Lab Findings Abnormal Lab Findings: Abnormal Lab Results 11/21/16 11/21/16 Range/Units 05:35 05:35 RBC 3.45 L (4.2-5.4) M/mm3 Hgb 10.5 L (12.5-16.0) gm/dL Hct 32.5 L (37.0-47.0) % RDW 15.3 H (11.5-14.0) % MPV 11.0 H (6.0-9.5) fl Chloride 109 H (97-106) mmol/L BUN 37 H D (3-23) mg/dL Est GFR (Non-Af Amer) 48 L (60-130) mL/min BUN/Creatinine Ratio 32.7 H (9.0-21.6) Random Glucose 116 H (70-110) mg/dL - Exam Constitutional: Present: Alert, Oriented x3, Cooperative ENT Exam: Present: hearing grossly normal Neck: Present: supple Breasts: Present: Exam deferred Respiratory: Present: decreased breath sounds, No rales, No wheezing Cardiovascular/Chest: Present: regular rate, rhythm, no JVD, no murmur Abdomen: Present: Normal bowel sounds, soft, nontender, nondistended Extremity: Present: no pedal edema, no calf tenderness Cauti Physician Documentation - Urinary Catheter Management Urethral (Mack) Date of Insertion: 11/17/16 Time of Insertion: 10:39 Assessment/Plan - Problems/Diagnosis (1) Acute blood loss anemia Problem: Acute Narrative: Hb is stable (2) Hip fracture, left Problem: Acute Qualifiers: Encounter type: initial encounter Fracture type: closed Qualified Code(s) : S72.002A - Fracture of unspecified part of neck of left femur, initial encounter for closed fracture Narrative: s/p ORIF (3) HTN (hypertension) Problem: Chronic Qualifiers: Hypertension type: essential hypertension Qualified Code(s): I10 - Essential (primary) hypertension Narrative: will start IV vasotec for now as she has porblems with swallowing (4) CVA (cerebral vascular accident) Problem: Acute Qualifiers: CVA mechanism: unspecified Qualified Code(s): I63.9 - Cerebral infarction, unspecified Narrative: CVA 1st lacunar infarct, basal ganglia and then RMCA territory. Neurology consulted. (5) Decreased urine output Problem: Acute Narrative: will start IVF until her PO intake increase.
[2016-11-21] MEDS: NORMAL SALINE 1,000 ML IV PRN (13:30)
[2016-11-21] MEDS: ENALAPRILAT DIHYDRATE 1.25 MG/ML VIAL IV SCH ×2 (13:33→20:39)
[2016-11-21] MEDS: PANTOPRAZOLE SODIUM 40 MG in NORMAL SALINE 100 ML IV SCH (14:00)
[2016-11-21] MEDS: ENOXAPARIN SODIUM 40 MG/0.4 ML SYRG SC SCH (14:03)
[2016-11-21] MEDS: ACETAMINOPHEN 500 MG TABLET PO PRN (16:11)
[2016-11-21] MEDS: SIMVASTATIN 40 MG TABLET PO SCH (20:44)
[2016-11-21] MEDS: SENNOSIDES/DOCUSATE SODIUM 1 TAB TABLET PO SCH (20:52)
[2016-11-21] MEDS: rOPINIRole HCL 1 MG TABLET PO SCH (20:52)
[2016-11-21] MEDS: KETOROLAC TROMETHAMINE 15 MG/ML VIAL IV PRN (20:55)
[2016-11-22] MEDS: NORMAL SALINE 1,000 ML IV PRN (00:11)
[2016-11-22] MEDS: ENALAPRILAT DIHYDRATE 1.25 MG/ML VIAL IV SCH ×3 (04:49→18:47)
[2016-11-22 05:29] LABS: Hematocrit 31.3 % (37.0-47.0); Mean Cell Volume 94.6 fl (78-100); Mean Corpuscular Hemoglobin 30.2 pg (27-31); Mean Corpuscular Hgb Conc 31.9 g/dl (32-36); Mean Platelet Volume 10.3 fl (6.0-9.5); Platelet Count 181 K/mm3 (150-450); Red Blood Count 3.31 M/mm3 (4.2-5.4); Red Cell Distribution Width 15.1 % (11.5-14.0); White Blood Count 7.4 K/mm3 (4.0-10.5)
[2016-11-22 05:45] LABS: Anion Gap 10.7 mmol/L (6.8-13.8); BUN/Creatinine Ratio 40.6 (9.0-21.6); Carbon Dioxide 26.7 mmol/L (24-32.6); Estimated Creat Clear 30.9; Potassium 3.4 mmol/L (3.4-4.6)
[2016-11-22] MEDS: BETA-CAROTENE(A) W-C , E/MIN 1 TAB TABLET PO SCH ×2 (08:55→20:42)
[2016-11-22] MEDS: ASPIRIN 81 MG TAB.CHEW PO SCH (08:55)
[2016-11-22] MEDS: FERROUS SULFATE 325 MG TABLET PO SCH ×2 (08:55→17:30)
[2016-11-22] MEDS: POTASSIUM CHLORIDE 10 MEQ in 0.5 NORMAL SALINE 1,000 ML IV SCH ×2 (09:41→20:24)
[2016-11-22] MEDS ORDERED: ENALAPRILAT DIHYDRATE 1.25 MG/ML VIAL IV ONE (10:51)
--- NOTE | 2016-11-22 11:05 | PN ---
Subjective - Date and Time Seen Date: 11/22/16 Time: 10:58 Subjective Narrative: Patient sitting on the recliner. As per son she is talking more today. Objective - Review of Systems Generalized/Overall Review: Reports: Weakness. Denies: Chills, Fever EENTM: Reports: No Symptoms Reported Respiratory: Denies: Cough, Shortness of Breath Cardiac: Denies: Chest Pain, Palpitations Abdominal: Denies: Nausea, Vomiting Genitourinary Symptoms: Denies: Urgency, Frequency Neurological: Reports: Weakness - left hemiparesis - Vitals Vitals: Last Vital Signs Temp 36.4 C L 11/22/16 10:45 Pulse 76 11/22/16 10:45 Resp 16 11/22/16 10:45 BP 185/64 11/22/16 10:45 Pulse Ox 96 11/22/16 10:45 - Abnormal Lab Findings Abnormal Lab Findings: Abnormal Lab Results 11/22/16 11/22/16 Range/Units 05:00 05:00 RBC 3.31 L (4.2-5.4) M/mm3 Hgb 10.0 L (12.5-16.0) gm/dL Hct 31.3 L (37.0-47.0) % MCHC 31.9 L (32-36) g/dl RDW 15.1 H (11.5-14.0) % MPV 10.3 H (6.0-9.5) fl Sodium 145 H (132-142) mmol/L Plasma Sodium 145 H (130-142) mmol/L Chloride 111 H (97-106) mmol/L BUN 43 H (3-23) mg/dL Est GFR (Non-Af Amer) 52 L (60-130) mL/min BUN/Creatinine Ratio 40.6 H (9.0-21.6) Random Glucose 113 H (70-110) mg/dL - Exam Constitutional: Present: Alert, Oriented x3, Cooperative, Elderly ENT Exam: Present: hearing grossly normal Neck: Present: supple Breasts: Present: Exam deferred Respiratory: Present: decreased breath sounds, No rales, No wheezing Cardiovascular/Chest: Present: regular rate, rhythm, no JVD, no murmur Abdomen: Present: Normal bowel sounds, soft, nontender, nondistended Extremity: Present: no calf tenderness, pedal edema Neurologic: Present: aphasia, facial droop - left NSL fold, other - left hemiparesis, LUE Cauti Physician Documentation - Urinary Catheter Management Urethral (Mack) Date of Insertion: 11/17/16 Time of Insertion: 10:39 Assessment/Plan - Problems/Diagnosis (1) Hip fracture, left Problem: Acute Qualifiers: Encounter type: initial encounter Fracture type: closed Qualified Code(s) : S72.002A - Fracture of unspecified part of neck of left femur, initial encounter for closed fracture (2) HTN (hypertension) Problem: Chronic Qualifiers: Hypertension type: essential hypertension Qualified Code(s): I10 - Essential (primary) hypertension Narrative: On IV Vasotec. (3) CVA (cerebral vascular accident) Problem: Acute Qualifiers: CVA mechanism: unspecified Qualified Code(s): I63.9 - Cerebral infarction, unspecified Narrative: continue with PT/OT/ST. on ASA. (4) Acute blood loss anemia Problem: Acute Narrative: stable Hb (5) Decreased urine output Problem: Acute
[2016-11-22] MEDS: KETOROLAC TROMETHAMINE 15 MG/ML VIAL IV PRN ×2 (11:44→18:48)
[2016-11-22] MEDS: PANTOPRAZOLE SODIUM 40 MG in NORMAL SALINE 100 ML IV SCH (13:09)
[2016-11-22] MEDS: ENOXAPARIN SODIUM 40 MG/0.4 ML SYRG SC SCH (13:15)
[2016-11-22] MEDS: SIMVASTATIN 40 MG TABLET PO SCH (20:27)
[2016-11-22] MEDS: SENNOSIDES/DOCUSATE SODIUM 1 TAB TABLET PO SCH (20:42)
[2016-11-22] MEDS: rOPINIRole HCL 1 MG TABLET PO SCH (20:42)
[2016-11-23] MEDS: ENALAPRILAT DIHYDRATE 1.25 MG/ML VIAL IV SCH ×4 (01:10→19:07)
[2016-11-23] MEDS: POTASSIUM CHLORIDE 10 MEQ in 0.5 NORMAL SALINE 1,000 ML IV SCH ×2 (07:26→19:43)
[2016-11-23] MEDS: KETOROLAC TROMETHAMINE 15 MG/ML VIAL IV PRN ×3 (07:30→21:29)
[2016-11-23] MEDS ORDERED: FUROSEMIDE 10 MG/ML VIAL IV ONE (08:40)
[2016-11-23] MEDS ORDERED: ENALAPRILAT DIHYDRATE 1.25 MG/ML VIAL IV SCH (09:20)
[2016-11-23] MEDS: ASPIRIN 81 MG TAB.CHEW PO SCH (09:39)
[2016-11-23] MEDS: BETA-CAROTENE(A) W-C , E/MIN 1 TAB TABLET PO SCH ×2 (09:53→20:43)
[2016-11-23] MEDS: FERROUS SULFATE 325 MG TABLET PO SCH ×2 (09:54→17:16)
--- NOTE | 2016-11-23 09:55 | PN ---
Subjective - Date and Time Seen Date: 11/23/16 Time: 09:50 Subjective Narrative: Patient more awake. Objective - Review of Systems Generalized/Overall Review: Reports: Weakness EENTM: Reports: No Symptoms Reported Respiratory: Denies: Cough, Shortness of Breath Cardiac: Denies: Chest Pain, Palpitations Abdominal: Denies: Nausea, Vomiting Genitourinary Symptoms: Denies: Urgency, Frequency Musculoskeletal Complaints: Denies: Joint Pain Neurological: Reports: Weakness - Vitals Vitals: Last Vital Signs Temp 36.4 C L 11/23/16 06:00 Pulse 79 11/23/16 09:34 Resp 18 11/23/16 06:00 BP 192/66 11/23/16 09:34 Pulse Ox 96 11/23/16 06:00 - Exam Constitutional: Present: Alert, Oriented x3, Cooperative, Elderly ENT Exam: Present: hearing grossly normal Neck: Present: supple Respiratory: Present: decreased breath sounds, No rales, No wheezing Cardiovascular/Chest: Present: regular rate, rhythm, no JVD, no murmur Abdomen: Present: soft, nontender, nondistended Extremity: Present: no calf tenderness Cauti Physician Documentation - Urinary Catheter Management Urethral (Mack) Date of Insertion: 11/17/16 Time of Insertion: 10:39 Assessment/Plan - Problems/Diagnosis (1) Hip fracture, left Problem: Acute Qualifiers: Encounter type: initial encounter Fracture type: closed Qualified Code(s) : S72.002A - Fracture of unspecified part of neck of left femur, initial encounter for closed fracture Narrative: continue with PT/OT (2) HTN (hypertension) Problem: Chronic Qualifiers: Hypertension type: essential hypertension Qualified Code(s): I10 - Essential (primary) hypertension Narrative: on IV vasotec (3) CVA (cerebral vascular accident) Problem: Acute Qualifiers: CVA mechanism: unspecified Qualified Code(s): I63.9 - Cerebral infarction, unspecified Narrative: on ASA. continue with PT/OT/ST. (4) Acute blood loss anemia Problem: Acute (5) Decreased urine output Problem: Acute
[2016-11-23] MEDS: PANTOPRAZOLE SODIUM 40 MG in NORMAL SALINE 100 ML IV SCH (13:27)
[2016-11-23] MEDS: ENOXAPARIN SODIUM 40 MG/0.4 ML SYRG SC SCH (15:07)
[2016-11-23] MEDS: SIMVASTATIN 40 MG TABLET PO SCH (20:34)
[2016-11-23] MEDS: SENNOSIDES/DOCUSATE SODIUM 1 TAB TABLET PO SCH (20:43)
[2016-11-23] MEDS: rOPINIRole HCL 1 MG TABLET PO SCH (20:43)
[2016-11-24] MEDS: ENALAPRILAT DIHYDRATE 1.25 MG/ML VIAL IV SCH ×3 (01:19→15:31)
[2016-11-24] MEDS: POTASSIUM CHLORIDE 10 MEQ in 0.5 NORMAL SALINE 1,000 ML IV SCH ×2 (07:07→15:31)
[2016-11-24] MEDS: KETOROLAC TROMETHAMINE 15 MG/ML VIAL IV PRN (07:08)
[2016-11-24] MEDS: ASPIRIN 81 MG TAB.CHEW PO SCH (08:42)
[2016-11-24] MEDS: FERROUS SULFATE 325 MG TABLET PO SCH ×2 (08:42→16:26)
[2016-11-24] MEDS: BETA-CAROTENE(A) W-C , E/MIN 1 TAB TABLET PO SCH ×2 (08:43→21:46)
[2016-11-24] MEDS: ACETAMINOPHEN 500 MG TABLET PO PRN (11:42)
--- NOTE | 2016-11-24 13:00 | PN ---
Progess Note - Interim Narrative: 11/24/16 12:51 No acute events overnight. Pt has improved over the past few days. She is now awake and alert. Pt is able to speak and answer questions. Pt condition seems to be improving. Was noted that patient had some blood tinged serosanguineous drainage from her bandages over the last 2 days. Bandages appear intact, there is dried blood tinged serosanguineous fluid, dressing was no soaked through, no area of incision that appears to need reinforcement with saad. Exam: General: Alert and awake Resp: no respiratory distress Extremities: LLE--> bandages have blood tinged serosanguineous drainage, no apparent active draining, 5/5 knee flex/ext, DF, PF, FHL, EHL, dorsal pedis pulse 2+, SILT - 86 y/o female post-op day #5 s/p closed reduction, cephalo-medullary fixation left intertrochanteric femur fracture - Bandages intact, continue with dressing changes every 2-3 days, monitor for drainage - WBAT on LLE - PT/OT progress as tolerated - Diet PO as tolerated - Pain management with [place] and tylenol, per medicine - DVT prophylaxis with patricia hose, SCDs, Lovenox until 10 days post-op begin 325 mg Aspirin - F/u in orthopedic outpatient office at 14 days post-op for wound check and staple removal - Acute TIA vs. Stroke, management per medicine - CHF, management per medicine - D/c patient when medicine team determines patient is medically stable
[2016-11-24] MEDS: PANTOPRAZOLE SODIUM 40 MG in NORMAL SALINE 100 ML IV SCH (14:17)
[2016-11-24] MEDS: ENOXAPARIN SODIUM 40 MG/0.4 ML SYRG SC SCH (14:25)
[2016-11-24] MEDS: traMADol HCL 50 MG TABLET PO PRN (16:33)
[2016-11-24] MEDS: ENALAPRIL MALEATE 5 MG TABLET PO SCH (21:46)
[2016-11-24] MEDS: rOPINIRole HCL 1 MG TABLET PO SCH (21:46)
[2016-11-24] MEDS: SENNOSIDES/DOCUSATE SODIUM 1 TAB TABLET PO SCH (21:46)
[2016-11-24] MEDS: SIMVASTATIN 40 MG TABLET PO SCH (21:47)
--- NOTE | 2016-11-24 23:55 | PN ---
Subjective - Date and Time Seen Date: 11/24/16 Time: 16:40 Subjective Narrative: Ramona, family, and nursing report improvement. Writing to communicate. Improved strength in left arm. Eating some food, although per tool engineer not making nutritional goals. Continues to have difficulty with speech and swallow. Pain is controlled. Objective - Vitals Vitals: Last Vital Signs Temp 36.8 C 11/24/16 23:46 Pulse 79 11/24/16 23:46 Resp 18 11/24/16 23:46 BP 163/63 11/24/16 23:46 Pulse Ox 93 11/24/16 23:46 - Exam Constitutional: Present: Alert, Oriented x3, Cooperative Respiratory: Present: lungs clear, normal breath sounds Cardiovascular/Chest: Present: regular rate, rhythm, no murmur Abdomen: Present: Normal bowel sounds, soft, nontender, nondistended Neurologic: Present: other - Left sided weakness 3/5 of arm, able to raise left arm today, occupational health nurse strength on left improved. 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 Making improvements. Poor oral intake. Currently on pureed diet with nectar thick liquids. Unable to make calorie goals. Will consult general surgery to discuss PEG tube. Continue Aspirin. Continue statin. Continue PT, OT, ST. Will get video swallow study tomorrow per ST. 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 Looking into inpatient stroke rehab at [facility]. Considering intermediate frame tender care at [facility]. (2) Hip fracture, left Problem: Acute Qualifiers: Encounter type: initial encounter Fracture type: closed Qualified Code(s) : S72.002A - Fracture of unspecified part of neck of left femur, initial encounter for closed fracture Narrative: Continue PT. Doing well per Ortho. (3) Acute blood loss anemia Problem: Acute Narrative: Stable
[2016-11-25] MEDS: traMADol HCL 50 MG TABLET PO PRN ×3 (03:04→21:48)
[2016-11-25] MEDS: ENALAPRIL MALEATE 5 MG TABLET PO SCH ×2 (08:03→21:44)
[2016-11-25] MEDS: BETA-CAROTENE(A) W-C , E/MIN 1 TAB TABLET PO SCH ×2 (08:03→21:44)
[2016-11-25] MEDS: ASPIRIN 81 MG TAB.CHEW PO SCH (08:03)
[2016-11-25] MEDS: FERROUS SULFATE 325 MG TABLET PO SCH ×2 (08:03→16:56)
[2016-11-25 10:39] LABS: Hematocrit 33.3 % (37.0-47.0); Hemoglobin 10.8 gm/dL (12.5-16.0); Mean Cell Volume 93.3 fl (78-100); Mean Corpuscular Hemoglobin 30.3 pg (27-31); Mean Corpuscular Hgb Conc 32.4 g/dl (32-36); Mean Platelet Volume 9.9 fl (6.0-9.5); Neutrophil # 7.1 K/mm3 (1.3-6.0); Neutrophil % 73.6 % (42-75.0); Platelet Count 264 K/mm3 (150-450); Red Blood Count 3.57 M/mm3 (4.2-5.4); Red Cell Distribution Width 14.7 % (11.5-14.0); White Blood Count 9.6 K/mm3 (4.0-10.5)
[2016-11-25 10:52] LABS: Albumin * 2.4 gm/dl (3.4-5.0); Anion Gap 13.4 mmol/L (6.8-13.8); BUN/Creatinine Ratio 29.3 (9.0-21.6); Bilirubin, Total 0.9 mg/dL (0.0-1.1); Ca. Corrected For Albumin 9.5 mg/dL (8.4-10.2); Calcium * 8.5 mg/dL (7.9-10.9); Carbon Dioxide 23.4 mmol/L (24-32.6); Potassium 3.8 mmol/L (3.4-4.6); Total Protein 6.2 gm/dL (6.2-8.2)
[2016-11-25] MEDS ORDERED: ceFAZolin SODIUM 1 GM VIAL IV ONE ×2 (12:50→13:18)
[2016-11-25] MEDS ORDERED: RINGER'S SOLUTION,LACTATED 1,000 ML IV ONE (13:07)
[2016-11-25] MEDS ORDERED: BUPIVACAINE HCL/EPINEPHRINE 50 ML VIAL IJ ONE (13:07)
[2016-11-25] MEDS: PANTOPRAZOLE SODIUM 40 MG in NORMAL SALINE 100 ML IV SCH (14:01)
[2016-11-25] MEDS: ENOXAPARIN SODIUM 40 MG/0.4 ML SYRG SC SCH (14:09)
--- NOTE | 2016-11-25 15:48 | OR ---
Operative Report - Dictated Report Narrative: OPERATIVE REPORT DATE OF OPERATION: 11/25/2016 PREOPERATIVE DIAGNOSIS: Dehydration, malnutrition, dysphagia secondary to CVA POSTOPERATIVE DIAGNOSIS: Same. Normal EGD OPERATION: EGD with insertion of PEG tube SURGEON: Lesly Fatima MD ANESTHESIA: JESICA Alcaraz CRNA INDICATIONS FOR PROCEDURE: The patient is an 86-year-old female who has had a significant right-sided CVA with resultant dysphagia. She is able to take some nectar consistency by mouth however this is insufficient to maintain hydration and nutrition. FINDINGS: Normal EGD. Successful placement of PEG tube NARRATIVE OF PROCEDURE: The patient was identified preoperatively and prior to the administration of anesthetic a multidisciplinary timeout was observed. The patient was placed supine. SCDs were applied. 1 g of intravenous Ancef was administered. After the administration of intravenous sedation a bite block was placed and the patient's eyes covered with a towel. The flexible fiberoptic gastroscope was advanced into the posterior pharynx which appeared normal. The supraglottic larynx appeared normal. The cords appeared normal move well and opposed in the midline. There was some adherent particulate matter adjacent to the larynx. The scope was advanced under direct vision into the proximal esophagus which appeared normal. Esophageal mucosa appeared normal down to the gastroesophageal junction which was sharp and noninflamed. The stomach was entered and insufflated with air. The gastric mucosa appeared grossly normal with no evidence of ulcer or neoplastic lesions. The pylorus was patent and the duodenal bulb appeared normal. Palpation on the anterior surface of the left upper quadrant of the abdominal wall produced a visible dent suggesting satisfactory anatomy for PEG tube placement. The anterior abdominal wall was prepped with DuraPrep and Betadine and isolated with sterile drape. The skin and subcutaneous tissue were then anesthetized with 0.5% Marcaine with epinephrine. The same needle was used to locate the expected PEG tube site in the stomach. The skin was incised and an introducer needle was inserted into the stomach under direct vision. A wire was passed into the stomach and grasped with the endoscopic snare. A wire was then withdrawn in conjunction with the gastroscope. The PEG tube was then attached to the wire and pulled down into the stomach to snug the mushroom against the anterior abdominal wall. A bolster was then placed, a clip placed, and the stopper mechanism affixed to the tube. A dressing a split 2 x 2 was applied. The endoscope was then readvanced into the stomach with confirmation of successful placement and no evidence of hemorrhage. The scope was used to remove insufflated air. The scope was withdrawn from the stomach and the procedure terminated. Patient tolerated the anesthesia and procedure well without complication. She was transferred back to the floor awake and in stable condition. All counts were correct. There was no measurable blood loss. No specimens were submitted. Reviewed in electronically signed
--- NOTE | 2016-11-25 16:42 | CONS ---
HPI - General Date of Service: 11/25/16 Source: patient, family, RN/MD, RN notes reviewed, old records Exam Limitations: clinical condition - History of Present Illness Timing/Duration: other - Since her stroke Severity: moderate Modifying Factors - (Worsens): Reports: eating Modifying Factors - (Improves): Reports: other - [place] consistency liquid Allergies/Adverse Reactions: Allergies naproxen [From Naprosyn] Adverse Reaction (Intermediate, Verified 11/17/16 14:07 ) Other atorvastatin calcium [From Lipitor] Adverse Reaction (Mild, Verified 11/17/16 14 :07) LEG CRAMPS Home Medications: Home Medications Medication Instructions Recorded Last Taken rOPINIRole HCL [Requip] 1 - 2 tab PO HS PRN 09/25/15 Unknown Aspirin 81 mg PO DAILY 04/15/16 Unknown Simvastatin [Zocor] 40 mg PO HS 04/15/16 Unknown Beta-Carotene(A) W-C , E/Min 1 tab PO BID 06/17/16 Unknown [Ocuvite] Furosemide [Lasix] 40 mg PO DAILY PRN 06/17/16 Unknown - Patient's Past Medical History Patient History - Medical: Anemia, Kidney stone Patient History - Cardiac/Respiratory: CHF, CVA/Stroke, Hypertension Patient History - Cancer: Colon Patient History - Surgical Procedures: Cataracts, Colonoscopy, Hysterectomy, Other Patient History - Other: None LMP (females 10-50): post men - Family History Father Family History - Medical: , No pertinent hx Family History - Cardiac/Respiratory: No pertinent hx Family History - Cancer: Prostate Mother Family History - Medical: , Diabetes Type 2 Family History - Cardiac/Respiratory: Hypertension Family History - Cancer: No pertinent family hx - Social History Living Situations: assisted living Abuse History: No History of abuse Psych History: No pertinent hx Smoking Status: Never smoker Have you smoked in the past 12 months: No Alcohol Use: none Drug Use: none - Immunizations Immunizations Up to Date: Yes Hx Pneumococcal Vaccination: Yes History of Influenza Vaccine: Yes Procedures ANESTH INJECT-SPIN CANAL (07/12/08) APPLICATION OF SPLINT (01/24/06) ARTERIAL BLD GAS MEASURE (02/11/13) BREAST DX PROCEDURE NEC (12/21/06) CLOSED ENDOSCOPIC BIOPSY OF LARGE INTESTINE (01/07/13) COLONOSCOPY (07/31/14) CONTINUOUS INVASIVE MECHANICAL VENTILATION <96 CONSEC HRS (09/05/11) DX ULTRASOUND-HEAD/NECK (05/31/01) ENDOSC POLYPECTOMY OF LG INTEST (06/23/12) ENDOSCOPIC BIOPSY OF RECTUM (01/07/13) ESOPHAGOGASTRODUODENOSCOPY [EGD] W/CLOSED BIOPSY (08/25/11) EXCISION OF DUODENUM, ENDO (06/17/16) INJECT STEROID (07/12/08) INSERT ENDOTRACHEAL TUBE (09/05/11) INSERTION OF INTRAMED FIX INTO L UP FEMUR, PERC APPROACH (11/17/16) INTESTINAL ANASTOM NOS (02/11/13) INTRODUCE OTH THROMBOLYTIC IN PERIPH VEIN, PERC (12/24/15) OP RED-INT FIX RAD/ULNA (01/29/06) OPEN AND OTHER RESECTION OF TRANSVERSE COLON (02/11/13) OPEN AND OTHER RIGHT HEMICOLECTOMY (09/05/11) PACKED CELL TRANSFUSION (06/24/12) PERCUTAN NEEDLE BIOPSY OF BREAST (12/21/06) PERCUTAN NEEDLE BX OF THYROID GLAND (05/31/01) REPAIR LEFT HAND SKIN, EXTERNAL APPROACH (04/14/15) REPLACEMENT OF LEFT LENS WITH SYNTH SUB, PERC APPROACH (10/01/15) SPINAL CANAL INJECT NEC (07/12/08) TRANSFUSE NONAUT RED BLOOD CELLS IN CENTRAL ART, PERC (11/17/16) TRANSFUSE NONAUT RED BLOOD CELLS IN PERIPH VEIN, PERC (06/17/16) Medications - Medications Current Medications: Current Medications Acetaminophen (Tylenol) 1,000 mg PO Q6H PRN PRN Reason: Mild pain Stop: 12/18/16 13:22 Last Admin: 11/24/16 11:42 Dose: 1,000 mg Aspirin (Aspirin Chewable) 324 mg PO DAILY [facility] Stop: 12/20/16 13:16 Last Admin: 11/25/16 08:03 Dose: 324 mg Enalapril Maleate (Vasotec) 5 mg PO BID BENY Stop: 12/24/16 21:01 Last Admin: 11/25/16 08:03 Dose: 5 mg Enoxaparin Sodium (Lovenox) 40 mg SC Q24H BENY Stop: 11/28/16 14:16 Last Admin: 11/25/16 14:09 Dose: 40 mg Ferrous Sulfate (Ferrous Sulfate) 325 mg PO BIDWM BENY Stop: 12/18/16 09:01 Last Admin: 11/25/16 08:03 Dose: 325 mg Pantoprazole Sodium 40 mg/ (Sodium Chloride) 100 mls @ 400 mls/hr IV Q24H BENY Stop: 12/17/16 13:01 Last Admin: 11/25/16 14:01 Dose: 400 mls/hr Ropinirole HCl (Requip) 1 mg PO HS BENY Stop: 12/17/16 22:31 Last Admin: 11/24/16 21:46 Dose: 1 mg Senna/Docusate Sodium (Senokot-S) 2 tab PO HS BENY Stop: 12/18/16 21:01 Last Admin: 11/24/16 21:46 Dose: 2 tab Simvastatin (Zocor) 40 mg PO HS BENY Stop: 12/17/16 22:31 Last Admin: 11/24/16 21:47 Dose: 40 mg Tramadol HCl (Ultram) 50 mg PO Q6H PRN PRN Reason: Moderate Pain Stop: 12/24/16 16:17 Last Admin: 11/25/16 14:53 Dose: 50 mg Vit A/Vit C/Vit E/Selen/Cu/Zn/Lutei (Ocuvite) 1 tab PO BID BENY Stop: 12/17/16 22:31 Last Admin: 11/25/16 08:03 Dose: 1 tab Review of Systems - Review of Systems Narrative: She feels weak. She is unable to take adequate amounts of nutrition even the nectar consistency. It is anticipated that she will be transferred to a rehabilitation facility. Physical Examination - Exam Vital Signs: Vital Signs - Last Taken Temp 36.9 C 11/25/16 0719 Pulse 94 11/25/16 0719 Resp 22 11/25/1619 BP 196/78 11/25/16718 Pulse Ox 94 11/25/16718 O2 Oxygen Delivery Method Nasal Cannula Constitutional: Present: Alert, Cooperative, No distress, Other - Left sided agnosia with persistent right gaze. Respiratory: Present: no respiratory distress Cardiovascular/Chest: Present: regular rate, rhythm Abdomen: Present: soft, nontender, other - Healed midline incision /Rectal: Present: Exam deferred Extremity: Present: normal inspection, no calf tenderness Skin Exam: Present: pallor Neurologic: Present: other - Left hemiparesis and left agnosia Eye contact: Present: good eye contact, other - Very slow speech difficult to understand however the patient can make her needs known and answer questions - Results and Findings: Lab/Microbiology results last 24 hrs: Abnormal/Pending Laboratory Last 24 HRS 11/25/16 11/25/16 10:30 10:30 RBC 3.57 L Hgb 10.8 L Hct 33.3 L RDW 14.7 H MPV 9.9 H Immature Gran % (Auto) 2.70 H Immature Gran # (Auto) 0.26 H Lymphocytes % 8.5 L Monocytes % 10.6 H Eosinophils % 4.3 H Neutrophils # 7.1 H Lymphocytes # 0.8 L Chloride 109 H Carbon Dioxide 23.4 L BUN 27 H BUN/Creatinine Ratio 29.3 H Random Glucose 120 H Albumin 2.4 L - Assessments/Findings (1) Dysphagia due to recent cerebrovascular accident (CVA) Diagnosis(s): She is currently taking in adequate amounts of fluid and calories to maintain without aspiration. I discussed placement of a PEG tube including the risks and alternatives. Possibility of injuring adjacent organs due to her previous surgery was discussed. After interactive discussion her and her family's questions were answered to their apparent satisfaction and informed consent was obtained for insertion of PEG tube which will be performed later today after a suitable npo status. Problem: Acute
[2016-11-25] MEDS: SENNOSIDES/DOCUSATE SODIUM 1 TAB TABLET PO SCH (21:44)
[2016-11-25] MEDS: rOPINIRole HCL 1 MG TABLET PO SCH (21:44)
[2016-11-25] MEDS: SIMVASTATIN 40 MG TABLET PO SCH (21:45)
--- NOTE | 2016-11-25 23:44 | PN ---
Subjective - Date and Time Seen Date: 11/25/16 Time: 12:45 Subjective Narrative: Getting a little stronger. Working with therapies, but does get tired. Tolerating tube feeds. No fever, chills, nausea, or vomiting. Objective - Vitals Vitals: Last Vital Signs Temp 36.6 C 11/25/16 23:05 Pulse 84 11/25/16 23:05 Resp 20 11/25/16 23:05 BP 172/58 11/25/16 23:05 Pulse Ox 100 11/25/16 23:05 - Abnormal Lab Findings Abnormal Lab Findings: Abnormal Lab Results 11/25/16 11/25/16 Range/Units 10:30 10:30 RBC 3.57 L (4.2-5.4) M/mm3 Hgb 10.8 L (12.5-16.0) gm/dL Hct 33.3 L (37.0-47.0) % RDW 14.7 H (11.5-14.0) % MPV 9.9 H (6.0-9.5) fl Immature Gran % (Auto) 2.70 H (0.001-0.429) % Immature Gran # (Auto) 0.26 H (0.000-0.0310) K/mm3 Lymphocytes % 8.5 L (20-51) % Monocytes % 10.6 H (0.0-9) % Eosinophils % 4.3 H (0.0-3.0) % Neutrophils # 7.1 H (1.3-6.0) K/mm3 Lymphocytes # 0.8 L (1.5-3.5) k/mm3 Chloride 109 H (97-106) mmol/L Carbon Dioxide 23.4 L (24-32.6) mmol/L BUN 27 H (3-23) mg/dL BUN/Creatinine Ratio 29.3 H (9.0-21.6) Random Glucose 120 H (70-110) mg/dL Albumin 2.4 L (3.4-5.0) gm/dl - Exam Constitutional: Present: Alert, Oriented x3, Cooperative ENT Exam: Present: hard of hearing Respiratory: Present: lungs clear, normal breath sounds Cardiovascular/Chest: Present: regular rate, rhythm, no murmur Abdomen: Present: Normal bowel sounds, soft, nontender, nondistended Skin Exam: Present: normal color, warm/dry, no cyanosis Cauti Physician Documentation - Urinary Catheter Management Urethral (Mack) Date of Insertion: 11/17/16 Time of Insertion: 10:39 Assessment/Plan Plan Narrative: Medically stable and making improvements. Working with therapy more and more each day. I believe she will be a good candidate for inpatient stroke rehab at [facility]. Planning to discharge to inpatient rehab tomorrow. Tolerating tube feeds. Continue to work with PT, OT, and ST. Pain is controlled. - Problems/Diagnosis (1) CVA (cerebral vascular accident) Problem: Acute Qualifiers: CVA mechanism: unspecified Qualified Code(s): I63.9 - Cerebral infarction, unspecified (2) Hip fracture, left Problem: Acute Qualifiers: Encounter type: initial encounter Fracture type: closed Qualified Code(s) : S72.002A - Fracture of unspecified part of neck of left femur, initial encounter for closed fracture (3) Acute blood loss anemia Problem: Acute
[2016-11-26] MEDS: BETA-CAROTENE(A) W-C , E/MIN 1 TAB TABLET PO SCH (08:23)
[2016-11-26] MEDS: ASPIRIN 81 MG TAB.CHEW PO SCH (08:23)
[2016-11-26] MEDS: FERROUS SULFATE 325 MG TABLET PO SCH (08:23)
[2016-11-26] MEDS: ENALAPRIL MALEATE 5 MG TABLET PO SCH (08:23)
[2016-11-26 10:16] VITALS: BP 160/53
--- NOTE | 2016-11-26 10:26 | ECHO ---
This report is available in the EMR
--- NOTE | 2016-11-26 11:12 | DS ---
(1) CVA (cerebral vascular accident) Problem: Acute Qualifiers: CVA mechanism: unspecified Qualified Code(s): I63.9 - Cerebral infarction, unspecified (2) Hip fracture, left Problem: Acute Qualifiers: Encounter type: initial encounter Fracture type: closed Qualified Code(s) : S72.002A - Fracture of unspecified part of neck of left femur, initial encounter for closed fracture (3) Acute blood loss anemia Problem: Acute Description of Stay: Ramona was admitted for fall secondary to acute CVA with subsequent left hip fracture. She was medically cleared for surgery. Surgery went well. Following surgery she was very somnolent secondary to pain medications, anesthesia, and also potentially complicated by CVA. Follow up head CT showed extensive ischemic infarct. She had difficulty with left extremity weakness, dysphagia, and dysphasia. Consulted with PT, OT, and ST. Working with therapies was difficult initially due to fatigue and somnolence. She had significant acute blood loss anemia and was transfused blood. Hgb improved and was stable. Gradually alertness improved and she began working with therapy. She had difficulty meeting caloric needs and Dr. Fatima was consulted for tube placement for feeds. Neurology was consulted due to CVA. PEG tube was placed and she tolerated this procedure well. She was started on tube feeds by pharmacy and router tender. She tolerated feeds well. She was accepted to [facility] inpatient stroke rehab and was discharged for further therapies. She will continue on tube feeds and advance oral intake as able and plan to discontinue tube feeds once she is meeting her oral goals. Procedures Performed: see notes below List Procedures: 11/18/16 - Left Hip Fracture Repair 11/25/16 - PEG Tube Placement for Tube feedings Discharge Disposition: [facility] - Inpatient Stroke Rehab Disposition: [facility] Condition: Stable Discharge Activity: Activity as tolerated Discharge Diet: Other - Pureed Diet with nectar thick liquids with tube feeding Osmolite 1.2 360ml four times a day followed by 90ml water flush Referrals: Brett Morales DO [Primary Care Provider] - (Follow up once discharged from inpatient stroke rehab) Problem Oriented Discharge Instructions to Patient/Family: Ischemic Stroke Treated Without Warfarin, [id number], Hip Fracture Additional Patient Instructions (free text): Call report to [facility] inpatient rehab at [phone]. Fax discharge orders to [phone]. Patient to continue Lovenox 40mg SQ daily x 3 additional days then stop. Prescriptions (Any new or edited meds): RX: Acetaminophen [Tylenol] 1,000 mg PO Q6H PRN #120 tablet PRN Reason: Mild Pain Aspirin [Aspirin EC] 325 mg PO DAILY #30 tablet. RX: Enalapril Maleate [Vasotec] 5 mg PO BID #60 tablet RX: Enoxaparin Sodium [Lovenox] 40 mg SC Q24H #3 disp.syrin RX: Sennosides/Docusate Sodium [Senokot-S] 2 tab PO HS #60 tablet RX: traMADol HCL [Ultram] 50 mg PO Q6H PRN #60 tablet PRN Reason: Moderate Pain Complete Home Medications List: Complete Home Medication List: RX: rOPINIRole HCL [Requip] 1 - 2 tab PO HS PRN 09/25/15 RX: Simvastatin [Zocor] 40 mg PO HS 04/15/16 RX: Beta-Carotene(A) W-C , E/Min [Ocuvite] 1 tab PO BID 06/17/16 RX: Furosemide [Lasix] 40 mg PO DAILY PRN 06/17/16 Aspirin [Aspirin EC] 325 mg PO DAILY #30 tablet. 11/26/16 RX: Acetaminophen [Tylenol] 1,000 mg PO Q6H PRN #120 tablet 11/26/16 RX: Enalapril Maleate [Vasotec] 5 mg PO BID #60 tablet 11/26/16 RX: Enoxaparin Sodium [Lovenox] 40 mg SC Q24H #3 disp.syrin 11/26/16 RX: Sennosides/Docusate Sodium [Senokot-S] 2 tab PO HS #60 tablet 11/26/16 RX: traMADol HCL [Ultram] 50 mg PO Q6H PRN #60 tablet 11/26/16
== END 2016-11-26 11:44 | disposition short-term general hospital (02) | DRG 480 ==
LOC: ER 09:26 → MS 11:11
PROVIDERS: ADMIT Family Medicine; ATTEND Family Medicine
PROC: 0QH736Z Insertion of Intramedullary Internal Fixation Device into Left Upper Femur, Percutaneous Approach (ICD-10-PCS; principal; 2016-11-18 10:30)
PROC: 30263N1 (ICD-10-PCS; 2016-11-19)
PROC: B246ZZZ Ultrasonography of Right and Left Heart (ICD-10-PCS; 2016-11-21)
PROC: 0DH63UZ Insertion of Feeding Device into Stomach, Percutaneous Approach (ICD-10-PCS; 2016-11-25)
DX: S72.142A Displaced intertrochanteric fracture of left femur, initial encounter for closed fracture (principal); I63.9 Cerebral infarction, unspecified; D62 Acute posthemorrhagic anemia; G81.94 Hemiplegia, unspecified affecting left nondominant side; I50.32 Chronic diastolic (congestive) heart failure; E46 Unspecified protein-calorie malnutrition; R47.1 Dysarthria and anarthria; R13.10 Dysphagia, unspecified; W18.30XA Fall on same level, unspecified, initial encounter; Y92.002 Bathroom of unspecified non-institutional (private) residence as the place of occurrence of the external cause; I10 Essential (primary) hypertension; E78.5 Hyperlipidemia, unspecified; I65.23 Occlusion and stenosis of bilateral carotid arteries; Z79.82 Long term (current) use of aspirin; Z85.038 Personal history of other malignant neoplasm of large intestine; Z68.29 Body mass index [BMI] 29.0-29.9, adult
CPT/HCPCS: 27245; 36415; 43246; 51702; 70450; 71010; 73502; 76000; 80048; 80053; 81001; 83540; 83550; 85025; 85027; 85610; 86850; 86900; 87081; 87086; 92507; 92526; 92610; 93005; 93306; 93880; 96374; 97110; 97116; 97162; 97165; 97530; 97535; 99284; J1756; P9016